=== PATIENT | male | born 1980 | race Caucasian/White ===

== ENCOUNTER 2019-03-10 04:55 | Emergency (ER) | payer SELFPAY ==
[~2019-03-10] VITALS: Ht 180.3 cm; Wt 81.6 kg
[2019-03-10 05:01] VITALS: BP 152/93
[2019-03-10] MEDS ORDERED: PRED20TA PO (05:10)
[2019-03-10] MEDS ORDERED: HYDR-3164 PO (05:10)
[2019-03-10] MEDS ORDERED: AMOX1TAB61 PO (05:10)
[2019-03-10] MEDS ORDERED: CHLO15MO2 PO (05:10)
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
[2019-03-10] MEDS ORDERED: DEXAMETHASONE 4 MG TABLET PO ONE (05:15)
[2019-03-10] MEDS ORDERED: AMOXICILLIN/K CLAV 875/125MG TABLET. PO ONE (05:15)
[2019-03-10] MEDS ORDERED: HYDROcodone/APAP 5/325MG 1 TAB TABLET PO ONE (05:30)
== END 2019-03-10 05:20 | disposition home or self-care (01) ==
LOC: ER 04:55
DX: K02.9 Dental caries, unspecified (principal); K08.89 Other specified disorders of teeth and supporting structures
CPT/HCPCS: 99284; J8540

== ENCOUNTER 2019-05-04 18:49 | Inpatient (IN) | payer BC ==
[~2019-05-04] VITALS: Ht 180.3 cm; Wt 79.0 kg
[~2019-05-04 18:49] MED LIST: AMOX1TAB61 PO; CHLO15MO2 PO; HYDR-3164 PO; PRED20TA PO
[2019-05-04] MEDS ORDERED: ONDANSETRON PF 4 MG/2 ML VIAL. IV ONE (19:00)
[2019-05-04] MEDS ORDERED: MULTIVIT INFUSN,ADULT 4,VIT K 10 ML, THIAMINE INJ 100 MG, FOLIC ACID INJ 1 MG in IV NOR... IV ONE (19:00)
--- NOTE | 2019-05-04 19:06 | PHYS DOC ---
Past Medical History Past Medical History: No Pertinent History Additional Past Medical Histor: DENTAL CARIES Past Surgical History: No Surgical History Alcohol Use: None Drug Use: None Adult General Chief Complaint Chief Complaint: WITHDRAWL HPI HPI 39-year-old male presents to emergency department with complaints of nausea, vomiting, abdominal cramping, weakness. Patient's underlying history of alcoholism, states he's been sober for at least 3 years however recently went on a binge for the approximately 30 days drinking 6 - 24 ounce beers per day. Patient states he stops today however had nausea, vomiting or abdominal pain, cramping states he drank approximately a height of vodka around noon thinking this helped his symptoms however continued to have vomiting and abdominal discomfort. EMS was called, heart rates in the 140s 150s. Patient is anxious, jittery on exam. He is cooperative. Nothing makes his symptoms worse, nothing makes them better. Patient has an chest pain, short of breath, headache, visual changes, hallucinations. Review of Systems Review of Systems Respiratory: Denies cough or shortness of breath [] Cardiovascular: No additional information not addressed in HPI [] GI: Positive abdominal pain, nausea, vomiting, and denies bloody stools or diarrhea [] Musculoskeletal: Joint aches, cramping Integument: Denies rash or skin lesions [] Neurologic: Denies headache, focal weakness or sensory changes [] All other systems were reviewed and found to be within normal limits, except as documented in this note. Current Medications Current Medications Current Medications Medications (Trade) Dose Ordered Sig/Mir Start Time Stop Time Status Last Admin Dose Admin Dicyclomine HCl (Bentyl) 10 mg 1X ONCE 05/04/19 19:15 05/04/19 19:16 DC 05/04/19 19:28 10 MG Lorazepam (Ativan Inj) 2 mg 1X ONCE 05/04/19 19:00 05/04/19 19:03 DC 05/04/19 19:12 2 MG Multivitamins 10 ml/Thiamine HCl 100 mg/Folic Acid 1 mg/Sodium Chloride 1,011.2 ml @ 1,000 mls/ hr 1X ONCE 05/04/19 19:00 05/04/19 20:00 DC 05/04/19 19:16 1,000 MLS/HR Ondansetron HCl (Zofran) 4 mg 1X ONCE 9/23/19 19:00 05/04/19 19:01 DC 05/04/19 19:28 4 MG Sodium Chloride 1,000 ml @ 1,000 mls/hr 1X ONCE 05/04/19 19:15 05/04/19 20:14 DC 05/04/19 19:16 1,000 MLS/HR Allergies Allergies Allergies Coded Allergies Type Severity Reaction Last Updated Verified No Known Drug Allergies 03/10/19 No Physical Exam Physical Exam Constitutional: Well developed, well nourished, mild distress, non-toxic appearance. [] HENT: Normocephalic, atraumatic, bilateral external ears normal, oropharynx moist, no oral exudates, nose normal. [] Eyes: PERRLA, EOMI, conjunctiva normal, no discharge. [] Cardiovascular: Tachycardia Lungs & Thorax: Bilateral breath sounds clear to auscultation [] Abdomen: Bowel sounds normal, soft, no tenderness, no masses, no pulsatile masses. [] Skin: Warm, dry, no erythema, no rash. [] Extremities: No tenderness, no cyanosis, no clubbing, ROM intact, no edema. [] Neurologic: Alert and oriented X 3, no focal deficits noted. [] Psychologic: Affect normal, judgement normal, mood normal. [] Current Patient Data Vital Signs Vital Signs Date Time Temp Pulse Resp B/P (MAP) Pulse Ox O2 Delivery O2 Flow Rate FiO2 05/04/19 18:49 98.7 137 18 158/94 (115) 91 Room Air 98.7 Lab Values Laboratory Tests Test 05/04/19 18:58 05/04/19 19:09 White Blood Count 9.5 x10^3/uL (4.0-11.0) Red Blood Count 5.38 x10^6/uL (4.30-5.70) Hemoglobin 19.3 g/dL (13.0-17.5) H Hematocrit 54.4 % (39.0-53.0) H Mean Corpuscular Volume 101 fL (79-100) H Mean Corpuscular Hemoglobin 36 pg (25-35) H Mean Corpuscular Hemoglobin Concent 36 g/dL (31-37) Red Cell Distribution Width 16.2 % (11.5-14.5) H Platelet Count 117 x10^3/uL (140-400) L Neutrophils (%) (Auto) 66 % (31-73) Lymphocytes (%) (Auto) 24 % (24-48) Monocytes (%) (Auto) 9 % (0-9) Eosinophils (%) (Auto) 0 % (0-3) Basophils (%) (Auto) 1 % (0-3) Neutrophils # (Auto) 6.2 x10^3/uL (1.8-7.7) Lymphocytes # (Auto) 2.3 x10^3/uL (1.0-4.8) Monocytes # (Auto) 0.8 x10^3/uL (0.0-1.1) Eosinophils # (Auto) 0.0 x10^3/uL (0.0-0.7) Basophils # (Auto) 0.1 x10^3/uL (0.0-0.2) Prothrombin Time 11.3 SEC (11.7-14.0) L Prothrombin Time INR 0.9 (0.8-1.1) Sodium Level 137 mmol/L (136-145) Potassium Level 4.0 mmol/L (3.5-5.1) Chloride Level 96 mmol/L (98-107) L Carbon Dioxide Level 24 mmol/L (21-32) Anion Gap 17 (6-14) H Blood Urea Nitrogen 12 mg/dL (8-26) Creatinine 0.8 mg/dL (0.7-1.3) Estimated GFR (Cockcroft-Gault) 107.6 Glucose Level 100 mg/dL (70-99) H Calcium Level 10.0 mg/dL (8.5-10.1) Magnesium Level 1.9 mg/dL (1.8-2.4) Total Bilirubin 0.6 mg/dL (0.2-1.0) Direct Bilirubin 0.2 mg/dL (0.0-0.2) Aspartate Amino Transferase (AST) 254 U/L (15-37) H Alanine Aminotransferase (ALT) 144 U/L (16-63) H Alkaline Phosphatase 193 U/L (46-116) H Total Protein 9.0 g/dL (6.4-8.2) H Albumin 4.2 g/dL (3.4-5.0) Lipase 222 U/L (73-393) Salicylates Level 9.3 mg/dL (2.8-20.0) Salicylate Last Dose Date Unknown Salicylate Last Dose Time Unknown Acetaminophen Level < 2 mcg/ml (10-30) L Acetaminophen Last Dose Date Unknown Acetaminophen Last Dose Time Unknown Ethyl Alcohol Level 311 mg/dL (0-10) H Urine Opiates Screen Neg (NEG) Urine Methadone Screen Neg (NEG) Urine Barbiturates Neg (NEG) Urine Phencyclidine Screen Neg (NEG) Urine Amphetamine/Methamphetamine Neg (NEG) Urine Benzodiazepines Screen Neg (NEG) Urine Cocaine Screen Neg (NEG) Urine Cannabinoids Screen Neg (NEG) Urine Ethyl Alcohol Pos (NEG) Laboratory Tests 05/04/19 18:58 Laboratory Tests 05/04/19 18:58 EKG EKG EKG reviewed, sinus tachycardia heart rate 135, no evidence of acute ST or T wave change. EKG is urgent given rate.[] Interpretation Time: Interpretation time 185 Radiology/Procedures Radiology/Procedures [] Course & Med Decision Making Course & Med Decision Making Pertinent Labs and Imaging studies reviewed. (See chart for details) []39-year-old male presents to emergency department with complaints of nausea, vomiting, abdominal cramping, weakness. Patient's underlying history of alcoholism, states he's been sober for at least 3 years however recently went on a binge for the approximately 30 days drinking 6 - 24 ounce beers per day. Patient states he stops today however had nausea, vomiting or abdominal pain, cramping states he drank approximately a height of vodka around noon thinking this helped his symptoms however continued to have vomiting and abdominal discomfort. EMS was called, heart rates in the 140s 150s. Patient is anxious, jittery on exam. He is cooperative. Nothing makes his symptoms worse, nothing makes them better. Patient has an chest pain, short of breath, headache, visual changes, hallucinations. Patient received 2 L of IV fluids currently infusing, labs reviewed AST is 254, ALT 144, lipase is 222 alcohols 311. Reason performed 40s 150s and currently 120s. Given his symptoms of alcohol withdrawal tachycardia and acute intoxication plan for admission and further evaluation for detox programs post his initial withdrawal recovery. We'll discuss admission with hospitalist. Nmio Disclaimer Nimo Disclaimer This electronic medical record was generated, in whole or in part, using a voice recognition dictation system. Departure Departure Impression: Primary Impression: Alcohol withdrawal Additional Impressions: Elevated liver function tests Thrombocytopenia concurrent with and due to alcoholism Disposition: ADMITTED INPATIENT Admitting Physician: JILL Condition: STABLE Referrals: NO PCP (PCP) Problem Qualifiers SINAN RÍOS MD May 04, 2019 19:06
[2019-05-04 19:09] LABS: BASO # 0.1 x10^3/uL (0.0-0.2); BASO % 1 % (0-3); EOS % 0 % (0-3); HEMATOCRIT 54.4 % (39.0-53.0); HEMOGLOBIN 19.3 g/dL (13.0-17.5); LYMPH # 2.3 x10^3/uL (1.0-4.8); LYMPH % 24 % (24-48); MEAN CORPUSCULAR HEMOGLOBIN 36 pg (25-35); MEAN CORPUSCULAR HGB CONC 36 g/dL (31-37); MEAN CORPUSCULAR VOLUME 101 fL (79-100); MONO # 0.8 x10^3/uL (0.0-1.1); MONO % 9 % (0-9); NEUT # 6.2 x10^3/uL (1.8-7.7); NEUT % 66 % (31-73); PLATELET COUNT 117 x10^3/uL (140-400); RED BLOOD COUNT 5.38 x10^6/uL (4.30-5.70); RED CELL DISTRIBUTION WIDTH 16.2 % (11.5-14.5); WHITE BLOOD COUNT 9.5 x10^3/uL (4.0-11.0)
[2019-05-04] MEDS ORDERED: IV NORMAL SALINE 1000ML BAG 1,000 ML IV ONE (19:15)
[2019-05-04] MEDS ORDERED: DICYCLOMINE 20 MG/2 ML AMPUL. IM ONE (19:15)
[2019-05-04 19:18] LABS: PROTHROMBIN TIME PATIENT 11.3 SEC (11.7-14.0)
[2019-05-04 19:22] LABS: CREATININE 0.8 mg/dL (0.7-1.3); GFR 107.6
[2019-05-04 19:26] LABS: AMPHETAMINE/METHAMPHETAMINE NEG (NEG); BARBITURATES NEG (NEG); BENZODIAZEPINES NEG (NEG); CANNABINOIDS NEG (NEG); COCAINE NEG (NEG); METHADONE NEG (NEG); OPIATES NEG (NEG); PHENCYCLIDINE NEG (NEG)
[2019-05-04 19:27] LABS: ALBUMIN 4.2 g/dL (3.4-5.0); DIRECT BILIRUBIN 0.2 mg/dL (0.0-0.2); MAGNESIUM 1.9 mg/dL (1.8-2.4); TOTAL BILIRUBIN 0.6 mg/dL (0.2-1.0)
[2019-05-04 19:31] LABS: ACETAMIN < 2 mcg/ml (10-30); ETHANOL 311 mg/dL (0-10); SALIC 9.3 mg/dL (2.8-20.0)
[2019-05-04] MEDS ORDERED: cloNIDine HCL 0.1 MG TABLET PO PRN (20:30)
[2019-05-04] MEDS ORDERED: ACETAMINOPHEN 325 MG TABLET. PO PRN (20:30)
[2019-05-04] MEDS ORDERED: ONDANSETRON PF 4 MG/2 ML VIAL. IV PRN (20:30)
--- NOTE | 2019-05-04 21:13 | PDOC1 ---
History and Physical Date of Admission Date of Admission DATE: 05/04/19 TIME: 21:07 Source Source: Chart review, Patient History of Present Illness History of Present Illness Mr. Friedman, is a 39-year-old male admit from ER for nausea, vomiting, abdominal cramping, weakness. Hx alcoholism, sober for at least 3 years, but took a leave from his job 30 days ago, started drinking, reports 12 beers daily and a half pint this AM when tremor and withdrawl started. He is likely wildly underestimating his EtOH use. She stinks of EtOH, and level is > 300 and his HR is 115, and he has tremor/agitation and classic signs of withdrawl, abd pain is better, ER gave 2mg IV ativan and he reports he "didn't even feel it" Social History Smoke: 2 packs per day ALCOHOL: heavy Current Problem List Problem List Problems Medical Problems: (1) Elevated liver function tests Status: Acute (2) Thrombocytopenia concurrent with and due to alcoholism Status: Acute Current Medications Current Medications Current Medications Ondansetron HCl (Zofran) 4 mg 1X ONCE IV Last administered on 05/04/19at 19:28; Start 05/04/19 at 19:00; Stop 05/04/19 at 19:01; Status DC Multivitamins 10 ml/Thiamine HCl 100 mg/Folic Acid 1 mg/Sodium Chloride 1,011.2 ml @ 1,000 mls/ hr 1X ONCE IV Last administered on 05/04/19at 19:16; Start 05/04/19 at 19:00; Stop 05/04/19 at 20:00; Status DC Lorazepam (Ativan Inj) 2 mg 1X ONCE IV Last administered on 05/04/19at 19:12; Start 05/04/19 at 19:00; Stop 05/04/19 at 19:03; Status DC Sodium Chloride 1,000 ml @ 1,000 mls/hr 1X ONCE IV Last administered on 05/04/19at 19:16; Start 05/04/19 at 19:15; Stop 05/04/19 at 20:14; Status DC Dicyclomine HCl (Bentyl) 10 mg 1X ONCE IM Last administered on 05/04/19at 19:28; Start 05/04/19 at 19:15; Stop 05/04/19 at 19:16; Status DC Ondansetron HCl (Zofran) 4 mg PRN Q8HRS PRN IV NAUSEA/VOMITING; Start 05/04/19 at 20:30; Stop 05/05/19 at 20:29 Acetaminophen (Tylenol) 650 mg PRN Q4HRS PRN PO FEVER; Start 05/04/19 at 20:30; Stop 05/05/19 at 20:29 Multivitamins 10 ml/Thiamine HCl 100 mg/Folic Acid 1 mg/Sodium Chloride 1,011.2 ml @ 100 mls/ hr DAILY IV ; Start 05/05/19 at 09:00; Stop 05/09/19 at 19:07 Lorazepam (Ativan Inj) 2 mg PRN Q1HR PRN IV For CIWA 8-14; Start 05/04/19 at 20:30 Lorazepam (Ativan Inj) 4 mg PRN Q1HR PRN IV For CIWA 15 or greater; Start 05/04/19 at 20:30 Haloperidol Lactate (Haldol Inj) 5 mg PRN Q4HRS PRN IVP Hallucinatns,Confusn,Delirium; Start 05/04/19 at 20:30 Clonidine HCl (Catapres) 0.1 mg PRN Q1HR PRN PO SBP > 180 or DBP > 100, MRX3; Start 05/04/19 at 20:30 Active Scripts Active Augmentin 875-125 Tablet (Amoxicillin/Potassium Clav) 1 Each Tablet 1 Tab PO BID [place] 5-325 Tablet (Acetaminophen/Hydrocodone Bitart) 1 Each Tablet 0.5-1 Tab PO PRN Q6HRS PRN Prednisone 20 Mg Tablet 2 Tab PO DAILY Start this medication tomorrow, Saturday03/11/19 Peridex (Chlorhexidine Gluconate) 15 Ml Mouthwash 15 Ml PO BID Allergies Allergies: Coded Allergies: No Known Drug Allergies (Unverified , 03/10/19) ROS General: YES: Chills, Fatigue, Malaise, Other; No: Night Sweats, Appetite PSYCHOLOGICAL ROS: YES: Anxiety, Hallucinations, Hostility, Irritablity, Obsessive thoughts, Sleep disturbances; No: Behavioral Disorder, Concentration difficultie, Decreased libido, Depression, Disorientation, Memory difficulties, Mood Swings, Physical abuse, Sexual abuse, Suicidal ideation, Other Eyes: No Blurry vision, No Decreased vision, No Double vision, No Dry eyes, No Excessive tearing, No Eye Pain, No Itchy Eyes, No Loss of vision, No Photophobia, No Scotomata, No Uses contacts, No Uses glasses, No Other HEENT: No: Heacaches, Visual Changes, Hearing change, Nasal congestion, Nasal discharge, Oral lesions, Sinus pain, Sore Throat, Epistaxis, Sneezing, Snoring, Tinnitus, Vertigo, Vocal changes, Other Respiratory: No: Cough, Hemoptysis, Orthopnea, Pleuritic Pain, Shortness of breath, SOB with excertion, Sputum Changes, Stridor, Tachypnea, Wheezing, Other Cardiovascular: No Chest Pain, No Palpitations, No Orthopnea, No Paroxysmal Noc. Dyspnea, No Edema, No Lt Headedness, No Other Gastrointestinal: Yes Nausea, Yes Abdominal Pain Genitourinary: No Dysuria, No Frequency, No Incontinence, No Hematuria, No Retention, No Discharge, No Urgency, No Pain, No Flank Pain, No Other, No , No , No , No , No , No , No Neurological: Yes Confusion, Yes Headaches, Yes Tremors, Yes Visual Changes, Ye s Weakness; No Behavorial Changes, No Bowel/Bladder ControlChng, No Dizziness, No Gait Disturbance, No Impaired Coord/balance, No Memory Loss, No Numbness/Tingling, No Seizures, No Speech Problems, No Other Skin: Yes Dry Skin; No Eczema, No Hair Changes, No Lumps, No Mole Changes, No Mottling, No Nail Changes, No Pruritus, No Rash, No Skin Lesion Changes, No Other, No Acne Physical Exam General: Alert, Oriented X3, Cooperative, moderate distress HEENT: PERRLA, EOMI, Mucous membr. moist/pink Lungs: Clear to auscultation Heart: S1S2, no gallops Abdomen: Normal bowel sounds (tender, ), Soft Extremities: No cyanosis, No edema, Normal pulses Skin: No rashes Neuro: Normal speech, Normal tone, Sensation intact, Cranial nerves 3-12 NL Psych/Mental Status: Mental status NL Vitals Vitals Vital Signs Date Time Temp Pulse Resp B/P (MAP) Pulse Ox O2 Delivery O2 Flow Rate FiO2 05/04/19 20:14 117 18 125/73 (90) 96 Room Air 05/04/19 18:49 98.7 98.7 Labs Labs Laboratory Tests Test 05/04/19 18:58 05/04/19 19:09 White Blood Count 9.5 x10^3/uL (4.0-11.0) Red Blood Count 5.38 x10^6/uL (4.30-5.70) Hemoglobin 19.3 g/dL (13.0-17.5) Hematocrit 54.4 % (39.0-53.0) Mean Corpuscular Volume 101 fL (79-100) Mean Corpuscular Hemoglobin 36 pg (25-35) Mean Corpuscular Hemoglobin Concent 36 g/dL (31-37) Red Cell Distribution Width 16.2 % (11.5-14.5) Platelet Count 117 x10^3/uL (140-400) Neutrophils (%) (Auto) 66 % (31-73) Lymphocytes (%) (Auto) 24 % (24-48) Monocytes (%) (Auto) 9 % (0-9) Eosinophils (%) (Auto) 0 % (0-3) Basophils (%) (Auto) 1 % (0-3) Neutrophils # (Auto) 6.2 x10^3/uL (1.8-7.7) Lymphocytes # (Auto) 2.3 x10^3/uL (1.0-4.8) Monocytes # (Auto) 0.8 x10^3/uL (0.0-1.1) Eosinophils # (Auto) 0.0 x10^3/uL (0.0-0.7) Basophils # (Auto) 0.1 x10^3/uL (0.0-0.2) Prothrombin Time 11.3 SEC (11.7-14.0) Prothromb Time International Ratio 0.9 (0.8-1.1) Sodium Level 137 mmol/L (136-145) Potassium Level 4.0 mmol/L (3.5-5.1) Chloride Level 96 mmol/L (98-107) Carbon Dioxide Level 24 mmol/L (21-32) Anion Gap 17 (6-14) Blood Urea Nitrogen 12 mg/dL (8-26) Creatinine 0.8 mg/dL (0.7-1.3) Estimated GFR (Cockcroft-Gault) 107.6 Glucose Level 100 mg/dL (70-99) Calcium Level 10.0 mg/dL (8.5-10.1) Magnesium Level 1.9 mg/dL (1.8-2.4) Total Bilirubin 0.6 mg/dL (0.2-1.0) Direct Bilirubin 0.2 mg/dL (0.0-0.2) Aspartate Amino Transf (AST/SGOT) 254 U/L (15-37) Alanine Aminotransferase (ALT/SGPT) 144 U/L (16-63) Alkaline Phosphatase 193 U/L (46-116) Total Protein 9.0 g/dL (6.4-8.2) Albumin 4.2 g/dL (3.4-5.0) Lipase 222 U/L (73-393) Salicylates Level 9.3 mg/dL (2.8-20.0) Salicylate Last Dose Date Unknown Salicylate Last Dose Time Unknown Acetaminophen Level < 2 mcg/ml (10-30) Acetaminophen Last Dose Date Unknown Acetaminophen Last Dose Time Unknown Ethyl Alcohol Level 311 mg/dL (0-10) Urine Opiates Screen Neg (NEG) Urine Methadone Screen Neg (NEG) Urine Barbiturates Neg (NEG) Urine Phencyclidine Screen Neg (NEG) Urine Amphetamine/Methamphetamine Neg (NEG) Urine Benzodiazepines Screen Neg (NEG) Urine Cocaine Screen Neg (NEG) Urine Cannabinoids Screen Neg (NEG) Urine Ethyl Alcohol Pos (NEG) Laboratory Tests Test 05/04/19 18:58 05/04/19 19:09 White Blood Count 9.5 x10^3/uL (4.0-11.0) Red Blood Count 5.38 x10^6/uL (4.30-5.70) Hemoglobin 19.3 g/dL (13.0-17.5) Hematocrit 54.4 % (39.0-53.0) Mean Corpuscular Volume 101 fL (79-100) Mean Corpuscular Hemoglobin 36 pg (25-35) Mean Corpuscular Hemoglobin Concent 36 g/dL (31-37) Red Cell Distribution Width 16.2 % (11.5-14.5) Platelet Count 117 x10^3/uL (140-400) Neutrophils (%) (Auto) 66 % (31-73) Lymphocytes (%) (Auto) 24 % (24-48) Monocytes (%) (Auto) 9 % (0-9) Eosinophils (%) (Auto) 0 % (0-3) Basophils (%) (Auto) 1 % (0-3) Neutrophils # (Auto) 6.2 x10^3/uL (1.8-7.7) Lymphocytes # (Auto) 2.3 x10^3/uL (1.0-4.8) Monocytes # (Auto) 0.8 x10^3/uL (0.0-1.1) Eosinophils # (Auto) 0.0 x10^3/uL (0.0-0.7) Basophils # (Auto) 0.1 x10^3/uL (0.0-0.2) Prothrombin Time 11.3 SEC (11.7-14.0) Prothromb Time International Ratio 0.9 (0.8-1.1) Sodium Level 137 mmol/L (136-145) Potassium Level 4.0 mmol/L (3.5-5.1) Chloride Level 96 mmol/L (98-107) Carbon Dioxide Level 24 mmol/L (21-32) Anion Gap 17 (6-14) Blood Urea Nitrogen 12 mg/dL (8-26) Creatinine 0.8 mg/dL (0.7-1.3) Estimated GFR (Cockcroft-Gault) 107.6 Glucose Level 100 mg/dL (70-99) Calcium Level 10.0 mg/dL (8.5-10.1) Magnesium Level 1.9 mg/dL (1.8-2.4) Total Bilirubin 0.6 mg/dL (0.2-1.0) Direct Bilirubin 0.2 mg/dL (0.0-0.2) Aspartate Amino Transf (AST/SGOT) 254 U/L (15-37) Alanine Aminotransferase (ALT/SGPT) 144 U/L (16-63) Alkaline Phosphatase 193 U/L (46-116) Total Protein 9.0 g/dL (6.4-8.2) Albumin 4.2 g/dL (3.4-5.0) Lipase 222 U/L (73-393) Salicylates Level 9.3 mg/dL (2.8-20.0) Salicylate Last Dose Date Unknown Salicylate Last Dose Time Unknown Acetaminophen Level < 2 mcg/ml (10-30) Acetaminophen Last Dose Date Unknown Acetaminophen Last Dose Time Unknown Ethyl Alcohol Level 311 mg/dL (0-10) Urine Opiates Screen Neg (NEG) Urine Methadone Screen Neg (NEG) Urine Barbiturates Neg (NEG) Urine Phencyclidine Screen Neg (NEG) Urine Amphetamine/Methamphetamine Neg (NEG) Urine Benzodiazepines Screen Neg (NEG) Urine Cocaine Screen Neg (NEG) Urine Cannabinoids Screen Neg (NEG) Urine Ethyl Alcohol Pos (NEG) VTE Prophylaxis Ordered VTE Prophylaxis Devices: No VTE Pharmacological Prophylaxi: Yes Assessment/Plan Assessment/Plan acute alcohol withdrawl toxic encephalopathy, EtOH level > 300 admit with withdrawl precautions and treatment transaminitis acute metabolic acidosis with gap from ETOH asthma and COPD, nebs tobacco use disorder, patch ARACELIS TELLEZ MD May 04, 2019 21:13
[2019-05-04] MEDS: ENOXAPARIN 40 MG/0.4 ML SYRINGE. SQ SCH (21:30)
[2019-05-04 21:43] VITALS: BP 130/89
[2019-05-04] MEDS: IPRATRPIUM/ALBUTEROL 0.5/2.5MG 3 ML NEBU. NEB SCH (22:00)
[2019-05-04] MEDS ORDERED: INFLUENZA VAX SCREEN BY RX. MC PRN (22:30)
[2019-05-05 03:27] VITALS: BP 135/84
[2019-05-05 04:51] LABS: BASO # 0.1 x10^3/uL (0.0-0.2); BASO % 1 % (0-3); EOS # 0.2 x10^3/uL (0.0-0.7); EOS % 3 % (0-3); HEMATOCRIT 48.4 % (39.0-53.0); HEMOGLOBIN 16.8 g/dL (13.0-17.5); LYMPH # 2.1 x10^3/uL (1.0-4.8); LYMPH % 34 % (24-48); MEAN CORPUSCULAR HEMOGLOBIN 36 pg (25-35); MEAN CORPUSCULAR HGB CONC 35 g/dL (31-37); MEAN CORPUSCULAR VOLUME 102 fL (79-100); MONO # 0.5 x10^3/uL (0.0-1.1); MONO % 8 % (0-9); NEUT # 3.3 x10^3/uL (1.8-7.7); NEUT % 53 % (31-73); PLATELET COUNT 104 x10^3/uL (140-400); RED BLOOD COUNT 4.74 x10^6/uL (4.30-5.70); RED CELL DISTRIBUTION WIDTH 16.9 % (11.5-14.5); WHITE BLOOD COUNT 6.1 x10^3/uL (4.0-11.0)
[2019-05-05 05:27] LABS: ALBUMIN 3.6 g/dL (3.4-5.0); ALBUMIN/GLOBULIN RATIO 0.9 (1.0-1.7); CALCIUM 9.5 mg/dL (8.5-10.1); CREATININE 0.7 mg/dL (0.7-1.3); GFR 125.5; POTASSIUM 3.8 mmol/L (3.5-5.1); TOTAL BILIRUBIN 0.8 mg/dL (0.2-1.0); TOTAL PROTEIN 7.6 g/dL (6.4-8.2)
[2019-05-05 07:30] VITALS: BP 152/95
--- NOTE | 2019-05-05 07:32 | EKG ---
[facility] [address] [place] [address] Test Date: 2019-05-04 Test Time: 18:53:56 Pat Name: LIN BEAL Department: Room: 654 1 Gender: M Chief Digital Officer: : 1980 Requested By: SINAN RÍOS Order Number: [id number] Reading MD: Americo Thrasher MD Measurements Intervals [place] Rate: 134 P: -125 DE: 108 QRS: -31 QRSD: 80 T: 63 QT: 270 QTc: 409 Interpretive Statements SINUS TACHYCARDIA NON-SPECIFIC ST/T CHANGES Electronically Signed On 05-18-2019 12:41:52 CDT by Americo Thrasher MD
[2019-05-05] MEDS: IPRATRPIUM/ALBUTEROL 0.5/2.5MG 3 ML NEBU. NEB SCH ×4 (07:35→19:38)
[2019-05-05] MEDS: BUDESONIDE 0.5 MG/2 ML NEBU. NEB SCH ×2 (07:37→19:38)
[2019-05-05] MEDS ORDERED: FLU VAX QS 2019-20 (36MOS+)/PF 0.5 ML SYRINGE. VAX IM ONE (09:00)
[2019-05-05] MEDS: MULTIVIT INFUSN,ADULT 4,VIT K 10 ML, THIAMINE INJ 100 MG, FOLIC ACID INJ 1 MG in IV NOR... IV SCH (09:07)
[2019-05-05] MEDS: LORazepam 0.5 MG TABLET PO SCH ×2 (09:07→20:16)
[2019-05-05 11:05] VITALS: BP 166/88
--- NOTE | 2019-05-05 11:27 | PDOC ---
PROGRESS NOTES Chief Complaint Chief Complaint still feels withdrawal. score of 5 this AM. overnight H and P reviewed. denies chest pain sob nausea vomiting diarrhea. History of Present Illness History of Present Illness acute alcohol withdrawl: continue ativan prn. toxic encephalopathy improving, EtOH level > 300 elevated LFTs: check hep panel. likely due to etoh. check US of liver acute metabolic acidosis with gap from ETOH asthma and COPD, nebs tobacco use disorder, patch dvt ppx: heparin sq full code dc once withdrawal improves. Vitals Vitals Vital Signs Date Time Temp Pulse Resp B/P (MAP) Pulse Ox O2 Delivery O2 Flow Rate FiO2 05/05/19 11:05 98.9 102 20 166/88 (114) 96 Room Air 98.9 Physical Exam General: Alert, Oriented X3, Cooperative, moderate distress Abdomen: Normal bowel sounds (tender, ), Soft Extremities: No cyanosis, No edema, Normal pulses Skin: No rashes Labs LABS Laboratory Tests Test 05/04/19 18:58 05/04/19 19:09 05/05/19 03:35 White Blood Count 9.5 x10^3/uL (4.0-11.0) 6.1 x10^3/uL (4.0-11.0) Red Blood Count 5.38 x10^6/uL (4.30-5.70) 4.74 x10^6/uL (4.30-5.70) Hemoglobin 19.3 g/dL (13.0-17.5) 16.8 g/dL (13.0-17.5) Hematocrit 54.4 % (39.0-53.0) 48.4 % (39.0-53.0) Mean Corpuscular Volume 101 fL (79-100) 102 fL (79-100) Mean Corpuscular Hemoglobin 36 pg (25-35) 36 pg (25-35) Mean Corpuscular Hemoglobin Concent 36 g/dL (31-37) 35 g/dL (31-37) Red Cell Distribution Width 16.2 % (11.5-14.5) 16.9 % (11.5-14.5) Platelet Count 117 x10^3/uL (140-400) 104 x10^3/uL (140-400) Neutrophils (%) (Auto) 66 % (31-73) 53 % (31-73) Lymphocytes (%) (Auto) 24 % (24-48) 34 % (24-48) Monocytes (%) (Auto) 9 % (0-9) 8 % (0-9) Eosinophils (%) (Auto) 0 % (0-3) 3 % (0-3) Basophils (%) (Auto) 1 % (0-3) 1 % (0-3) Neutrophils # (Auto) 6.2 x10^3/uL (1.8-7.7) 3.3 x10^3/uL (1.8-7.7) Lymphocytes # (Auto) 2.3 x10^3/uL (1.0-4.8) 2.1 x10^3/uL (1.0-4.8) Monocytes # (Auto) 0.8 x10^3/uL (0.0-1.1) 0.5 x10^3/uL (0.0-1.1) Eosinophils # (Auto) 0.0 x10^3/uL (0.0-0.7) 0.2 x10^3/uL (0.0-0.7) Basophils # (Auto) 0.1 x10^3/uL (0.0-0.2) 0.1 x10^3/uL (0.0-0.2) Prothrombin Time 11.3 SEC (11.7-14.0) Prothromb Time International Ratio 0.9 (0.8-1.1) Sodium Level 137 mmol/L (136-145) 139 mmol/L (136-145) Potassium Level 4.0 mmol/L (3.5-5.1) 3.8 mmol/L (3.5-5.1) Chloride Level 96 mmol/L (98-107) 100 mmol/L (98-107) Carbon Dioxide Level 24 mmol/L (21-32) 27 mmol/L (21-32) Anion Gap 17 (6-14) 12 (6-14) Blood Urea Nitrogen 12 mg/dL (8-26) 11 mg/dL (8-26) Creatinine 0.8 mg/dL (0.7-1.3) 0.7 mg/dL (0.7-1.3) Estimated GFR (Cockcroft-Gault) 107.6 125.5 Glucose Level 100 mg/dL (70-99) 72 mg/dL (70-99) Calcium Level 10.0 mg/dL (8.5-10.1) 9.5 mg/dL (8.5-10.1) Magnesium Level 1.9 mg/dL (1.8-2.4) Total Bilirubin 0.6 mg/dL (0.2-1.0) 0.8 mg/dL (0.2-1.0) Direct Bilirubin 0.2 mg/dL (0.0-0.2) Aspartate Amino Transf (AST/SGOT) 254 U/L (15-37) 186 U/L (15-37) Alanine Aminotransferase (ALT/SGPT) 144 U/L (16-63) 112 U/L (16-63) Alkaline Phosphatase 193 U/L (46-116) 158 U/L (46-116) Total Protein 9.0 g/dL (6.4-8.2) 7.6 g/dL (6.4-8.2) Albumin 4.2 g/dL (3.4-5.0) 3.6 g/dL (3.4-5.0) Lipase 222 U/L (73-393) Salicylates Level 9.3 mg/dL (2.8-20.0) Salicylate Last Dose Date Unknown Salicylate Last Dose Time Unknown Acetaminophen Level < 2 mcg/ml (10-30) Acetaminophen Last Dose Date Unknown Acetaminophen Last Dose Time Unknown Ethyl Alcohol Level 311 mg/dL (0-10) Urine Opiates Screen Neg (NEG) Urine Methadone Screen Neg (NEG) Urine Barbiturates Neg (NEG) Urine Phencyclidine Screen Neg (NEG) Urine Amphetamine/Methamphetamine Neg (NEG) Urine Benzodiazepines Screen Neg (NEG) Urine Cocaine Screen Neg (NEG) Urine Cannabinoids Screen Neg (NEG) Urine Ethyl Alcohol Pos (NEG) BUN/Creatinine Ratio 16 (6-20) Albumin/Globulin Ratio 0.9 (1.0-1.7) Assessment and Plan Assessmemt and Plan Problems Medical Problems: (1) Elevated liver function tests Status: Acute (2) Thrombocytopenia concurrent with and due to alcoholism Status: Acute Comment Review of Relevant I have reviewed the following items roseline (where applicable) has been applied. Labs Laboratory Tests Test 05/04/19 18:58 05/04/19 19:09 05/05/19 03:35 White Blood Count 9.5 x10^3/uL (4.0-11.0) 6.1 x10^3/uL (4.0-11.0) Red Blood Count 5.38 x10^6/uL (4.30-5.70) 4.74 x10^6/uL (4.30-5.70) Hemoglobin 19.3 g/dL (13.0-17.5) 16.8 g/dL (13.0-17.5) Hematocrit 54.4 % (39.0-53.0) 48.4 % (39.0-53.0) Mean Corpuscular Volume 101 fL (79-100) 102 fL (79-100) Mean Corpuscular Hemoglobin 36 pg (25-35) 36 pg (25-35) Mean Corpuscular Hemoglobin Concent 36 g/dL (31-37) 35 g/dL (31-37) Red Cell Distribution Width 16.2 % (11.5-14.5) 16.9 % (11.5-14.5) Platelet Count 117 x10^3/uL (140-400) 104 x10^3/uL (140-400) Neutrophils (%) (Auto) 66 % (31-73) 53 % (31-73) Lymphocytes (%) (Auto) 24 % (24-48) 34 % (24-48) Monocytes (%) (Auto) 9 % (0-9) 8 % (0-9) Eosinophils (%) (Auto) 0 % (0-3) 3 % (0-3) Basophils (%) (Auto) 1 % (0-3) 1 % (0-3) Neutrophils # (Auto) 6.2 x10^3/uL (1.8-7.7) 3.3 x10^3/uL (1.8-7.7) Lymphocytes # (Auto) 2.3 x10^3/uL (1.0-4.8) 2.1 x10^3/uL (1.0-4.8) Monocytes # (Auto) 0.8 x10^3/uL (0.0-1.1) 0.5 x10^3/uL (0.0-1.1) Eosinophils # (Auto) 0.0 x10^3/uL (0.0-0.7) 0.2 x10^3/uL (0.0-0.7) Basophils # (Auto) 0.1 x10^3/uL (0.0-0.2) 0.1 x10^3/uL (0.0-0.2) Prothrombin Time 11.3 SEC (11.7-14.0) Prothromb Time International Ratio 0.9 (0.8-1.1) Sodium Level 137 mmol/L (136-145) 139 mmol/L (136-145) Potassium Level 4.0 mmol/L (3.5-5.1) 3.8 mmol/L (3.5-5.1) Chloride Level 96 mmol/L (98-107) 100 mmol/L (98-107) Carbon Dioxide Level 24 mmol/L (21-32) 27 mmol/L (21-32) Anion Gap 17 (6-14) 12 (6-14) Blood Urea Nitrogen 12 mg/dL (8-26) 11 mg/dL (8-26) Creatinine 0.8 mg/dL (0.7-1.3) 0.7 mg/dL (0.7-1.3) Estimated GFR (Cockcroft-Gault) 107.6 125.5 Glucose Level 100 mg/dL (70-99) 72 mg/dL (70-99) Calcium Level 10.0 mg/dL (8.5-10.1) 9.5 mg/dL (8.5-10.1) Magnesium Level 1.9 mg/dL (1.8-2.4) Total Bilirubin 0.6 mg/dL (0.2-1.0) 0.8 mg/dL (0.2-1.0) Direct Bilirubin 0.2 mg/dL (0.0-0.2) Aspartate Amino Transf (AST/SGOT) 254 U/L (15-37) 186 U/L (15-37) Alanine Aminotransferase (ALT/SGPT) 144 U/L (16-63) 112 U/L (16-63) Alkaline Phosphatase 193 U/L (46-116) 158 U/L (46-116) Total Protein 9.0 g/dL (6.4-8.2) 7.6 g/dL (6.4-8.2) Albumin 4.2 g/dL (3.4-5.0) 3.6 g/dL (3.4-5.0) Lipase 222 U/L (73-393) Salicylates Level 9.3 mg/dL (2.8-20.0) Salicylate Last Dose Date Unknown Salicylate Last Dose Time Unknown Acetaminophen Level < 2 mcg/ml (10-30) Acetaminophen Last Dose Date Unknown Acetaminophen Last Dose Time Unknown Ethyl Alcohol Level 311 mg/dL (0-10) Urine Opiates Screen Neg (NEG) Urine Methadone Screen Neg (NEG) Urine Barbiturates Neg (NEG) Urine Phencyclidine Screen Neg (NEG) Urine Amphetamine/Methamphetamine Neg (NEG) Urine Benzodiazepines Screen Neg (NEG) Urine Cocaine Screen Neg (NEG) Urine Cannabinoids Screen Neg (NEG) Urine Ethyl Alcohol Pos (NEG) BUN/Creatinine Ratio 16 (6-20) Albumin/Globulin Ratio 0.9 (1.0-1.7) Laboratory Tests Test 05/04/19 18:58 05/04/19 19:09 05/05/19 03:35 White Blood Count 9.5 x10^3/uL (4.0-11.0) 6.1 x10^3/uL (4.0-11.0) Red Blood Count 5.38 x10^6/uL (4.30-5.70) 4.74 x10^6/uL (4.30-5.70) Hemoglobin 19.3 g/dL (13.0-17.5) 16.8 g/dL (13.0-17.5) Hematocrit 54.4 % (39.0-53.0) 48.4 % (39.0-53.0) Mean Corpuscular Volume 101 fL (79-100) 102 fL (79-100) Mean Corpuscular Hemoglobin 36 pg (25-35) 36 pg (25-35) Mean Corpuscular Hemoglobin Concent 36 g/dL (31-37) 35 g/dL (31-37) Red Cell Distribution Width 16.2 % (11.5-14.5) 16.9 % (11.5-14.5) Platelet Count 117 x10^3/uL (140-400) 104 x10^3/uL (140-400) Neutrophils (%) (Auto) 66 % (31-73) 53 % (31-73) Lymphocytes (%) (Auto) 24 % (24-48) 34 % (24-48) Monocytes (%) (Auto) 9 % (0-9) 8 % (0-9) Eosinophils (%) (Auto) 0 % (0-3) 3 % (0-3) Basophils (%) (Auto) 1 % (0-3) 1 % (0-3) Neutrophils # (Auto) 6.2 x10^3/uL (1.8-7.7) 3.3 x10^3/uL (1.8-7.7) Lymphocytes # (Auto) 2.3 x10^3/uL (1.0-4.8) 2.1 x10^3/uL (1.0-4.8) Monocytes # (Auto) 0.8 x10^3/uL (0.0-1.1) 0.5 x10^3/uL (0.0-1.1) Eosinophils # (Auto) 0.0 x10^3/uL (0.0-0.7) 0.2 x10^3/uL (0.0-0.7) Basophils # (Auto) 0.1 x10^3/uL (0.0-0.2) 0.1 x10^3/uL (0.0-0.2) Prothrombin Time 11.3 SEC (11.7-14.0) Prothromb Time International Ratio 0.9 (0.8-1.1) Sodium Level 137 mmol/L (136-145) 139 mmol/L (136-145) Potassium Level 4.0 mmol/L (3.5-5.1) 3.8 mmol/L (3.5-5.1) Chloride Level 96 mmol/L (98-107) 100 mmol/L (98-107) Carbon Dioxide Level 24 mmol/L (21-32) 27 mmol/L (21-32) Anion Gap 17 (6-14) 12 (6-14) Blood Urea Nitrogen 12 mg/dL (8-26) 11 mg/dL (8-26) Creatinine 0.8 mg/dL (0.7-1.3) 0.7 mg/dL (0.7-1.3) Estimated GFR (Cockcroft-Gault) 107.6 125.5 Glucose Level 100 mg/dL (70-99) 72 mg/dL (70-99) Calcium Level 10.0 mg/dL (8.5-10.1) 9.5 mg/dL (8.5-10.1) Magnesium Level 1.9 mg/dL (1.8-2.4) Total Bilirubin 0.6 mg/dL (0.2-1.0) 0.8 mg/dL (0.2-1.0) Direct Bilirubin 0.2 mg/dL (0.0-0.2) Aspartate Amino Transf (AST/SGOT) 254 U/L (15-37) 186 U/L (15-37) Alanine Aminotransferase (ALT/SGPT) 144 U/L (16-63) 112 U/L (16-63) Alkaline Phosphatase 193 U/L (46-116) 158 U/L (46-116) Total Protein 9.0 g/dL (6.4-8.2) 7.6 g/dL (6.4-8.2) Albumin 4.2 g/dL (3.4-5.0) 3.6 g/dL (3.4-5.0) Lipase 222 U/L (73-393) Salicylates Level 9.3 mg/dL (2.8-20.0) Salicylate Last Dose Date Unknown Salicylate Last Dose Time Unknown Acetaminophen Level < 2 mcg/ml (10-30) Acetaminophen Last Dose Date Unknown Acetaminophen Last Dose Time Unknown Ethyl Alcohol Level 311 mg/dL (0-10) Urine Opiates Screen Neg (NEG) Urine Methadone Screen Neg (NEG) Urine Barbiturates Neg (NEG) Urine Phencyclidine Screen Neg (NEG) Urine Amphetamine/Methamphetamine Neg (NEG) Urine Benzodiazepines Screen Neg (NEG) Urine Cocaine Screen Neg (NEG) Urine Cannabinoids Screen Neg (NEG) Urine Ethyl Alcohol Pos (NEG) BUN/Creatinine Ratio 16 (6-20) Albumin/Globulin Ratio 0.9 (1.0-1.7) Medications Current Medications Ondansetron HCl (Zofran) 4 mg 1X ONCE IV Last administered on 05/04/19at 19:28; Start 05/04/19 at 19:00; Stop 05/04/19 at 19:01; Status DC Multivitamins 10 ml/Thiamine HCl 100 mg/Folic Acid 1 mg/Sodium Chloride 1,011.2 ml @ 1,000 mls/ hr 1X ONCE IV Last administered on 05/04/19at 19:16; Start 05/04/19 at 19:00; Stop 05/04/19 at 20:00; Status DC Lorazepam (Ativan Inj) 2 mg 1X ONCE IV Last administered on 05/04/19at 19:12; Start 05/04/19 at 19:00; Stop 05/04/19 at 19:03; Status DC Sodium Chloride 1,000 ml @ 1,000 mls/hr 1X ONCE IV Last administered on 05/04/19at 19:16; Start 05/04/19 at 19:15; Stop 05/04/19 at 20:14; Status DC Dicyclomine HCl (Bentyl) 10 mg 1X ONCE IM Last administered on 05/04/19at 19:28; Start 05/04/19 at 19:15; Stop 05/04/19 at 19:16; Status DC Ondansetron HCl (Zofran) 4 mg PRN Q8HRS PRN IV NAUSEA/VOMITING; Start 05/04/19 at 20:30; Stop 05/05/19 at 20:29 Acetaminophen (Tylenol) 650 mg PRN Q4HRS PRN PO FEVER; Start 05/04/19 at 20:30; Stop 05/05/19 at 20:29 Multivitamins 10 ml/Thiamine HCl 100 mg/Folic Acid 1 mg/Sodium Chloride 1,011.2 ml @ 100 mls/ hr DAILY IV Last administered on 05/05/19at 09:10; Start 05/05/19 at 09:00; Stop 05/09/19 at 19:07 Lorazepam (Ativan Inj) 2 mg PRN Q1HR PRN IV For CIWA 8-14; Start 05/04/19 at 20:30 Lorazepam (Ativan Inj) 4 mg PRN Q1HR PRN IV For CIWA 15 or greater; Start 05/04/19 at 20:30 Haloperidol Lactate (Haldol Inj) 5 mg PRN Q4HRS PRN IVP Hallucinatns,Confusn,Delirium; Start 05/04/19 at 20:30 Clonidine HCl (Catapres) 0.1 mg PRN Q1HR PRN PO SBP > 180 or DBP > 100, MRX3; Start 05/04/19 at 20:30 Lorazepam (Ativan Inj) 2 mg 1X ONCE IV Last administered on 05/04/19at 21:12; Start 05/04/19 at 21:15; Stop 05/04/19 at 21:18; Status DC Albuterol/ Ipratropium (Duoneb) 3 ml Q4HRS W/A NEB Last administered on 05/05/19at 07:36; Start 05/04/19 at 22:00 Budesonide (Pulmicort) 0.5 mg BID NEB Last administered on 05/05/19at 07:37; Start 05/05/19 at 09:00 Lorazepam (Ativan) 1 mg BID PO Last administered on 05/05/19at 09:10; Start 05/05/19 at 09:00 Nicotine (Nicoderm Cq 21mg) 1 patch PRN DAILY PRN TD SMOKING CESSATION; Start 05/04/19 at 21:15 Enoxaparin Sodium (Lovenox Per Pharmacy Prophylaxis Dosing) 1 each PRN DAILY PRN MC SEE COMMENTS; Start 05/04/19 at 21:15 Enoxaparin Sodium (Lovenox 40mg Syringe) 40 mg Q24H SQ ; Start 05/04/19 at 21:30 Influenza Virus Vaccine Quadrival (Afluria Quad 2019-20 (3yr Up) Syringe) 0.5 ml ONCE ONCE VAX IM Last administered on 05/05/19at 09:10; Start 05/05/19 at 09:00; Stop 05/05/19 at 09:01; Status DC Info (FLU VACCINE SCREEN per RX) 1 each PRN 1X PRN MC SEE COMMENTS; Start 05/04/19 at 22:30; Status Cancel Active Scripts Active Augmentin 875-125 Tablet (Amoxicillin/Potassium Clav) 1 Each Tablet 1 Tab PO BID [place] 5-325 Tablet (Acetaminophen/Hydrocodone Bitart) 1 Each Tablet 0.5-1 Tab PO PRN Q6HRS PRN Prednisone 20 Mg Tablet 2 Tab PO DAILY Start this medication tomorrow, Saturday03/11/19 Peridex (Chlorhexidine Gluconate) 15 Ml Mouthwash 15 Ml PO BID Vitals/I & O Vital Sign - Last 24 Hours 05/04/19 05/04/19 05/04/19 05/04/19 18:49 18:59 19:29 19:44 Temp 98.7 98.7 Pulse 137 136 133 126 Resp 18 B/P (MAP) 158/94 (115) 158/94 (115) 151/100 (117) 137/76 (96) Pulse Ox 91 92 92 94 O2 Delivery Room Air Room Air Room Air Room Air 05/04/19 05/04/19 05/04/19 05/04/19 19:59 20:14 20:59 21:43 Temp 97.8 97.8 Pulse 124 117 108 115 Resp 14 20 B/P (MAP) 129/74 (92) 125/73 (90) 135/88 (104) 130/89 (103) Pulse Ox 94 96 94 96 O2 Delivery Room Air Room Air Room Air Room Air 05/05/19 05/05/19 05/05/19 05/05/19 03:27 07:30 07:35 11:05 Temp 98.6 99.2 98.9 98.6 99.2 98.9 Pulse 119 86 102 Resp 20 20 B/P (MAP) 135/84 (101) 152/95 (114) 166/88 (114) Pulse Ox 91 94 97 96 O2 Delivery Room Air Room Air Room Air Room Air Intake and Output 05/04/19 05/04/19 05/05/19 14:59 22:59 06:59 Intake Total 630 ml Balance 630 ml SHADY ERAZO MD May 05, 2019 11:27
--- NOTE | 2019-05-05 12:22 | NUR ---
JOSELIN consulted for homelessness Chart reviewed. JOSELIN phoned PAT team and Eliud met with pt. Pt is agreeable to go to [facility] once medically stable for services. Eliud reported PAT team can be called to re-eval pt for [facility] once medically cleared. Will continue to follow.
--- NOTE | 2019-05-05 13:17 | RAD ---
EXAM: Pelvic sonogram. HISTORY: Elevated liver function laboratory values. TECHNIQUE: Sonographic imaging of the abdomen was performed. COMPARISON: None. FINDINGS: There is hepatomegaly and hepatic steatosis. No focal hepatic lesion is seen. The gallbladder is unremarkable. The common bile duct is normal in caliber. The right kidney, pancreas and inferior vena cava are unremarkable. IMPRESSION: Hepatomegaly and hepatic steatosis. Electronically signed by: Sridevi De La O MD (05/05/2019 1:14 PM) [place] [id number]
[2019-05-05 15:04] VITALS: BP 133/85
[2019-05-05 19:53] VITALS: BP 132/93
[2019-05-05] MEDS: ENOXAPARIN 40 MG/0.4 ML SYRINGE. SQ SCH (20:16)
[2019-05-05 23:45] VITALS: BP 143/98
[2019-05-06 03:57] VITALS: BP 150/101
[2019-05-06 05:28] LABS: ALBUMIN 3.3 g/dL (3.4-5.0); CALCIUM 9.5 mg/dL (8.5-10.1); CREATININE 0.6 mg/dL (0.7-1.3); DIRECT BILIRUBIN 0.3 mg/dL (0.0-0.2); POTASSIUM 3.2 mmol/L (3.5-5.1); TOTAL BILIRUBIN 1.2 mg/dL (0.2-1.0); TOTAL PROTEIN 7.1 g/dL (6.4-8.2)
[2019-05-06] MEDS: IPRATRPIUM/ALBUTEROL 0.5/2.5MG 3 ML NEBU. NEB SCH ×5 (07:30→22:00)
[2019-05-06] MEDS: BUDESONIDE 0.5 MG/2 ML NEBU. NEB SCH ×2 (07:30→19:59)
[2019-05-06 07:53] VITALS: BP 155/104
[2019-05-06] MEDS: LORazepam 0.5 MG TABLET PO SCH ×2 (08:43→20:35)
[2019-05-06] MEDS: NICOTINE 21MG PATCH. TD PRN (08:44)
[2019-05-06] MEDS: MULTIVIT INFUSN,ADULT 4,VIT K 10 ML, THIAMINE INJ 100 MG, FOLIC ACID INJ 1 MG in IV NOR... IV SCH (08:44)
[2019-05-06] MEDS ORDERED: POTASSIUM CHLORIDE 20 MEQ TABLET.ER. PO ONE (09:00)
[2019-05-06] MEDS ORDERED: LOPERAMIDE 2 MG CAPSULE PO PRN (10:15)
[2019-05-06 11:33] VITALS: BP 145/106
--- NOTE | 2019-05-06 12:33 | NUR ---
Clarisse from PAT team will see pt today. RN notified.
--- NOTE | 2019-05-06 12:55 | NUR ---
SW following pt. Pt seen by PAT team, not medically stable to go to [facility]. Will re-evaluate tomorrow.
[2019-05-06 15:00] VITALS: BP 116/72
[2019-05-06] MEDS: HALOPERIDOL LACTATE 5 MG/ML VIAL. IVP PRN ×2 (15:18→23:18)
--- NOTE | 2019-05-06 17:30 | PDOC ---
PROGRESS NOTES Chief Complaint Chief Complaint still feels withdrawal. score of 10 this AM. denies chest pain sob nausea vomiting diarrhea. asking for something to move his bowels History of Present Illness History of Present Illness acute alcohol withdrawl: continue ativan prn. toxic encephalopathy improving, EtOH level > 300 elevated LFTs: check hep panel-neg. likely due to etoh. check US of liver- fatty liver dz acute metabolic acidosis with gap from ETOH- resolved asthma and COPD, nebs tobacco use disorder, patch dvt ppx: heparin sq full code dc once withdrawal improves. patient [facility]- consult Vitals Vitals Vital Signs Date Time Temp Pulse Resp B/P (MAP) Pulse Ox O2 Delivery O2 Flow Rate FiO2 05/06/19 15:23 96 Room Air 05/06/19 15:00 99.0 69 18 116/72 (87) 99.0 Physical Exam General: Alert, Oriented X3, Cooperative, moderate distress Abdomen: Normal bowel sounds (tender, ), Soft Extremities: No cyanosis, No edema, Normal pulses Skin: No rashes Labs LABS Laboratory Tests Test 05/06/19 03:40 Sodium Level 140 mmol/L (136-145) Potassium Level 3.2 mmol/L (3.5-5.1) Chloride Level 101 mmol/L (98-107) Carbon Dioxide Level 27 mmol/L (21-32) Anion Gap 12 (6-14) Blood Urea Nitrogen 9 mg/dL (8-26) Creatinine 0.6 mg/dL (0.7-1.3) Estimated GFR (Cockcroft-Gault) 150.0 Glucose Level 81 mg/dL (70-99) Calcium Level 9.5 mg/dL (8.5-10.1) Total Bilirubin 1.2 mg/dL (0.2-1.0) Direct Bilirubin 0.3 mg/dL (0.0-0.2) Aspartate Amino Transf (AST/SGOT) 105 U/L (15-37) Alanine Aminotransferase (ALT/SGPT) 81 U/L (16-63) Alkaline Phosphatase 131 U/L (46-116) Total Protein 7.1 g/dL (6.4-8.2) Albumin 3.3 g/dL (3.4-5.0) Assessment and Plan Assessmemt and Plan Problems Medical Problems: (1) Elevated liver function tests Status: Acute (2) Thrombocytopenia concurrent with and due to alcoholism Status: Acute Comment Review of Relevant I have reviewed the following items roseline (where applicable) has been applied. Labs Laboratory Tests Test 05/04/19 18:58 05/04/19 19:09 05/05/19 03:35 05/06/19 03:40 White Blood Count 9.5 x10^3/uL (4.0-11.0) 6.1 x10^3/uL (4.0-11.0) Red Blood Count 5.38 x10^6/uL (4.30-5.70) 4.74 x10^6/uL (4.30-5.70) Hemoglobin 19.3 g/dL (13.0-17.5) 16.8 g/dL (13.0-17.5) Hematocrit 54.4 % (39.0-53.0) 48.4 % (39.0-53.0) Mean Corpuscular Volume 101 fL (79-100) 102 fL (79-100) Mean Corpuscular Hemoglobin 36 pg (25-35) 36 pg (25-35) Mean Corpuscular Hemoglobin Concent 36 g/dL (31-37) 35 g/dL (31-37) Red Cell Distribution Width 16.2 % (11.5-14.5) 16.9 % (11.5-14.5) Platelet Count 117 x10^3/uL (140-400) 104 x10^3/uL (140-400) Neutrophils (%) (Auto) 66 % (31-73) 53 % (31-73) Lymphocytes (%) (Auto) 24 % (24-48) 34 % (24-48) Monocytes (%) (Auto) 9 % (0-9) 8 % (0-9) Eosinophils (%) (Auto) 0 % (0-3) 3 % (0-3) Basophils (%) (Auto) 1 % (0-3) 1 % (0-3) Neutrophils # (Auto) 6.2 x10^3/uL (1.8-7.7) 3.3 x10^3/uL (1.8-7.7) Lymphocytes # (Auto) 2.3 x10^3/uL (1.0-4.8) 2.1 x10^3/uL (1.0-4.8) Monocytes # (Auto) 0.8 x10^3/uL (0.0-1.1) 0.5 x10^3/uL (0.0-1.1) Eosinophils # (Auto) 0.0 x10^3/uL (0.0-0.7) 0.2 x10^3/uL (0.0-0.7) Basophils # (Auto) 0.1 x10^3/uL (0.0-0.2) 0.1 x10^3/uL (0.0-0.2) Prothrombin Time 11.3 SEC (11.7-14.0) Prothromb Time International Ratio 0.9 (0.8-1.1) Sodium Level 137 mmol/L (136-145) 139 mmol/L (136-145) 140 mmol/L (136-145) Potassium Level 4.0 mmol/L (3.5-5.1) 3.8 mmol/L (3.5-5.1) 3.2 mmol/L (3.5-5.1) Chloride Level 96 mmol/L (98-107) 100 mmol/L (98-107) 101 mmol/L (98-107) Carbon Dioxide Level 24 mmol/L (21-32) 27 mmol/L (21-32) 27 mmol/L (21-32) Anion Gap 17 (6-14) 12 (6-14) 12 (6-14) Blood Urea Nitrogen 12 mg/dL (8-26) 11 mg/dL (8-26) 9 mg/dL (8-26) Creatinine 0.8 mg/dL (0.7-1.3) 0.7 mg/dL (0.7-1.3) 0.6 mg/dL (0.7-1.3) Estimated GFR (Cockcroft-Gault) 107.6 125.5 150.0 Glucose Level 100 mg/dL (70-99) 72 mg/dL (70-99) 81 mg/dL (70-99) Calcium Level 10.0 mg/dL (8.5-10.1) 9.5 mg/dL (8.5-10.1) 9.5 mg/dL (8.5-10.1) Magnesium Level 1.9 mg/dL (1.8-2.4) Total Bilirubin 0.6 mg/dL (0.2-1.0) 0.8 mg/dL (0.2-1.0) 1.2 mg/dL (0.2-1.0) Direct Bilirubin 0.2 mg/dL (0.0-0.2) 0.3 mg/dL (0.0-0.2) Aspartate Amino Transf (AST/SGOT) 254 U/L (15-37) 186 U/L (15-37) 105 U/L (15-37) Alanine Aminotransferase (ALT/SGPT) 144 U/L (16-63) 112 U/L (16-63) 81 U/L (16-63) Alkaline Phosphatase 193 U/L (46-116) 158 U/L (46-116) 131 U/L (46-116) Total Protein 9.0 g/dL (6.4-8.2) 7.6 g/dL (6.4-8.2) 7.1 g/dL (6.4-8.2) Albumin 4.2 g/dL (3.4-5.0) 3.6 g/dL (3.4-5.0) 3.3 g/dL (3.4-5.0) Lipase 222 U/L (73-393) Salicylates Level 9.3 mg/dL (2.8-20.0) Salicylate Last Dose Date Unknown Salicylate Last Dose Time Unknown Acetaminophen Level < 2 mcg/ml (10-30) Acetaminophen Last Dose Date Unknown Acetaminophen Last Dose Time Unknown Ethyl Alcohol Level 311 mg/dL (0-10) Urine Opiates Screen Neg (NEG) Urine Methadone Screen Neg (NEG) Urine Barbiturates Neg (NEG) Urine Phencyclidine Screen Neg (NEG) Urine Amphetamine/Methamphetamine Neg (NEG) Urine Benzodiazepines Screen Neg (NEG) Urine Cocaine Screen Neg (NEG) Urine Cannabinoids Screen Neg (NEG) Urine Ethyl Alcohol Pos (NEG) BUN/Creatinine Ratio 16 (6-20) Albumin/Globulin Ratio 0.9 (1.0-1.7) Hepatitis A IgM Antibody Nonreactive (Nonreactive) Hepatitis B Surface Antigen Nonreactive (Nonreactive) Hepatitis B Core IgM Antibody Nonreactive (Nonreactive) Hepatitis C IgG Antibody Nonreactive (Nonreactive) Laboratory Tests Test 05/06/19 03:40 Sodium Level 140 mmol/L (136-145) Potassium Level 3.2 mmol/L (3.5-5.1) Chloride Level 101 mmol/L (98-107) Carbon Dioxide Level 27 mmol/L (21-32) Anion Gap 12 (6-14) Blood Urea Nitrogen 9 mg/dL (8-26) Creatinine 0.6 mg/dL (0.7-1.3) Estimated GFR (Cockcroft-Gault) 150.0 Glucose Level 81 mg/dL (70-99) Calcium Level 9.5 mg/dL (8.5-10.1) Total Bilirubin 1.2 mg/dL (0.2-1.0) Direct Bilirubin 0.3 mg/dL (0.0-0.2) Aspartate Amino Transf (AST/SGOT) 105 U/L (15-37) Alanine Aminotransferase (ALT/SGPT) 81 U/L (16-63) Alkaline Phosphatase 131 U/L (46-116) Total Protein 7.1 g/dL (6.4-8.2) Albumin 3.3 g/dL (3.4-5.0) Medications Current Medications Ondansetron HCl (Zofran) 4 mg 1X ONCE IV Last administered on 05/04/19 19:28; Start 05/04/19 at 19:00; Stop 05/04/19 at 19:01; Status DC Multivitamins 10 ml/Thiamine HCl 100 mg/Folic Acid 1 mg/Sodium Chloride 1,011.2 ml @ 1,000 mls/ hr 1X ONCE IV Last administered on 05/04/19 19:16; Start 05/04/19 at 19:00; Stop 05/04/19 at 20:00; Status DC Lorazepam (Ativan Inj) 2 mg 1X ONCE IV Last administered on 05/04/19 19:12; Start 05/04/19 at 19:00; Stop 05/04/19 at 19:03; Status DC Sodium Chloride 1,000 ml @ 1,000 mls/hr 1X ONCE IV Last administered on 05/04/19 19:16; Start 05/04/19 at 19:15; Stop 05/04/19 at 20:14; Status DC Dicyclomine HCl (Bentyl) 10 mg 1X ONCE IM Last administered on 05/04/19 19:28; Start 05/04/19 at 19:15; Stop 05/04/19 at 19:16; Status DC Ondansetron HCl (Zofran) 4 mg PRN Q8HRS PRN IV NAUSEA/VOMITING Last administered on 05/05/19 20:17; Start 05/04/19 at 20:30; Stop 05/05/19 at 20:29; Status DC Acetaminophen (Tylenol) 650 mg PRN Q4HRS PRN PO FEVER; Start 05/04/19 at 20:30; Stop 05/05/19 at 20:29; Status DC Multivitamins 10 ml/Thiamine HCl 100 mg/Folic Acid 1 mg/Sodium Chloride 1,011.2 ml @ 100 mls/ hr DAILY IV Last administered on 05/06/19 08:44; Start 05/05/19 at 09:00; Stop 05/09/19 at 19:07 Lorazepam (Ativan Inj) 2 mg PRN Q1HR PRN IV For CIWA 8-14 Last administered on 05/05/19at 16:16; Start 05/04/19 at 20:30 Lorazepam (Ativan Inj) 4 mg PRN Q1HR PRN IV For CIWA 15 or greater Last administered on 05/06/19 13:07; Start 05/04/19 at 20:30 Haloperidol Lactate (Haldol Inj) 5 mg PRN Q4HRS PRN IVP Hallucinatns,Confusn,Delirium Last administered on 05/06/19 15:18; Start 05/04/19 at 20:30 Clonidine HCl (Catapres) 0.1 mg PRN Q1HR PRN PO SBP > 180 or DBP > 100, MRX3; Start 05/04/19 at 20:30 Lorazepam (Ativan Inj) 2 mg 1X ONCE IV Last administered on 05/04/19 21:12; Start 05/04/19 at 21:15; Stop 05/04/19 at 21:18; Status DC Albuterol/ Ipratropium (Duoneb) 3 ml Q4HRS W/A NEB Last administered on 05/06/19 15:22; Start 05/04/19 at 22:00 Budesonide (Pulmicort) 0.5 mg BID NEB Last administered on 05/06/19 07:30; Start 05/05/19 at 09:00 Lorazepam (Ativan) 1 mg BID PO Last administered on 05/06/19 08:44; Start 05/05/19 at 09:00 Nicotine (Nicoderm Cq 21mg) 1 patch PRN DAILY PRN TD SMOKING CESSATION Last administered on 05/06/19 08:44; Start 05/04/19 at 21:15 Enoxaparin Sodium (Lovenox Per Pharmacy Prophylaxis Dosing) 1 each PRN DAILY PRN MC SEE COMMENTS; Start 05/04/19 at 21:15 Enoxaparin Sodium (Lovenox 40mg Syringe) 40 mg Q24H SQ Last administered on 05/05/19at 20:17; Start 05/04/19 at 21:30 Influenza Virus Vaccine Quadrival (Afluria Quad 2019-20 (3yr Up) Syringe) 0.5 ml ONCE ONCE VAX IM Last administered on 05/05/19 09:10; Start 05/05/19 at 09:00; Stop 05/05/19 at 09:01; Status DC Info (FLU VACCINE SCREEN per RX) 1 each PRN 1X PRN MC SEE COMMENTS; Start 05/04/19 at 22:30; Status Cancel Potassium Chloride (Klor-Con) 40 meq 1X ONCE PO Last administered on 05/06/19at 08:44; Start 05/06/19 at 09:00; Stop 05/06/19 at 09:01; Status DC Loperamide HCl (Imodium) 2 mg PRN Q6HRS PRN PO DIARRHEA Last administered on 05/06/19at 10:34; Start 05/06/19 at 10:15 Active Scripts Active Augmentin 875-125 Tablet (Amoxicillin/Potassium Clav) 1 Each Tablet 1 Tab PO BID [place] 5-325 Tablet (Acetaminophen/Hydrocodone Bitart) 1 Each Tablet 0.5-1 Tab PO PRN Q6HRS PRN Prednisone 20 Mg Tablet 2 Tab PO DAILY Start this medication tomorrow, Saturday03/11/19 Peridex (Chlorhexidine Gluconate) 15 Ml Mouthwash 15 Ml PO BID Vitals/I & O Vital Sign - Last 24 Hours 05/05/19 05/05/19 05/05/19 05/05/19 19:39 19:40 19:53 20:00 Temp 98.2 98.2 Pulse 106 Resp 20 B/P (MAP) 132/93 (106) Pulse Ox 94 94 96 O2 Delivery Room Air Room Air Room Air Room Air 05/05/19 05/06/19 05/06/19 05/06/19 23:45 03:57 07:32 07:53 Temp 98.3 98.5 98.9 98.3 98.5 98.9 Pulse 78 82 93 Resp 18 18 14 B/P (MAP) 143/98 (113) 150/101 (117) 155/104 (121) Pulse Ox 97 96 95 92 O2 Delivery Room Air Room Air Room Air Room Air 05/06/19 05/06/19 05/06/19 05/06/19 08:00 11:33 11:44 15:00 Temp 98.1 99.0 98.1 99.0 Pulse 90 69 Resp 16 18 B/P (MAP) 145/106 (119) 116/72 (87) Pulse Ox 95 95 99 O2 Delivery Room Air Room Air Room Air Room Air 05/06/19 15:23 Pulse Ox 96 O2 Delivery Room Air Intake and Output 05/05/19 05/05/19 05/06/19 15:00 23:00 07:00 Intake Total 360 ml 340 ml 100 ml Output Total 300 ml 304 ml Balance 60 ml 36 ml 100 ml SHADY ERAZO MD May 06, 2019 17:30
[2019-05-06 19:20] VITALS: BP 130/89
[2019-05-06] MEDS: ENOXAPARIN 40 MG/0.4 ML SYRINGE. SQ SCH (20:35)
[2019-05-06 23:15] VITALS: BP 149/106
[2019-05-07 03:23] VITALS: BP 134/90
[2019-05-07] MEDS: IPRATRPIUM/ALBUTEROL 0.5/2.5MG 3 ML NEBU. NEB SCH ×5 (06:00→22:00)
[2019-05-07] MEDS: BUDESONIDE 0.5 MG/2 ML NEBU. NEB SCH ×2 (06:12→20:00)
[2019-05-07 07:00] VITALS: BP 131/85
[2019-05-07] MEDS: LORazepam 0.5 MG TABLET PO SCH ×2 (08:33→20:45)
[2019-05-07] MEDS: MULTIVIT INFUSN,ADULT 4,VIT K 10 ML, THIAMINE INJ 100 MG, FOLIC ACID INJ 1 MG in IV NOR... IV SCH (08:52)
[2019-05-07] MEDS: NICOTINE 21MG PATCH. TD PRN (09:21)
[2019-05-07] MEDS: HALOPERIDOL LACTATE 5 MG/ML VIAL. IVP PRN ×3 (09:22→19:28)
--- NOTE | 2019-05-07 09:35 | PDOC ---
PROGRESS NOTES Chief Complaint Chief Complaint denies chest pain sob nausea vomiting diarrhea. History of Present Illness History of Present Illness impression severe alcohol abuse acute alcohol withdrawal: continue ativan prn. toxic encephalopathy improving, EtOH level > 300 elevated LFTs: check hep panel-neg. likely due to etoh. check US of liver- fatty liver dz acute metabolic acidosis with gap from ETOH- resolved asthma and COPD, nebs tobacco use disorder, patch dvt ppx: heparin sq full code dc once withdrawal improves. d/c to treatment program 05/07 patient homeless- consult 33 min d/c planning time Vitals Vitals Vital Signs Date Time Temp Pulse Resp B/P (MAP) Pulse Ox O2 Delivery O2 Flow Rate FiO2 05/07/19 07:00 99.4 76 16 131/85 (100) 95 Room Air 99.4 Physical Exam General: Alert, Oriented X3, Cooperative, No acute distress Heart: Regular rate, Normal S1, Normal S2 Lungs: Clear Abdomen: Normal bowel sounds (tender, ), Soft Extremities: No clubbing, No cyanosis, No edema, Normal pulses Skin: No rashes Assessment and Plan Assessmemt and Plan Problems Medical Problems: (1) Elevated liver function tests Status: Acute (2) Thrombocytopenia concurrent with and due to alcoholism Status: Acute Comment Review of Relevant I have reviewed the following items roseline (where applicable) has been applied. Labs Laboratory Tests Test 05/06/19 03:40 Sodium Level 140 mmol/L (136-145) Potassium Level 3.2 mmol/L (3.5-5.1) Chloride Level 101 mmol/L (98-107) Carbon Dioxide Level 27 mmol/L (21-32) Anion Gap 12 (6-14) Blood Urea Nitrogen 9 mg/dL (8-26) Creatinine 0.6 mg/dL (0.7-1.3) Estimated GFR (Cockcroft-Gault) 150.0 Glucose Level 81 mg/dL (70-99) Calcium Level 9.5 mg/dL (8.5-10.1) Total Bilirubin 1.2 mg/dL (0.2-1.0) Direct Bilirubin 0.3 mg/dL (0.0-0.2) Aspartate Amino Transf (AST/SGOT) 105 U/L (15-37) Alanine Aminotransferase (ALT/SGPT) 81 U/L (16-63) Alkaline Phosphatase 131 U/L (46-116) Total Protein 7.1 g/dL (6.4-8.2) Albumin 3.3 g/dL (3.4-5.0) Medications Current Medications Ondansetron HCl (Zofran) 4 mg 1X ONCE IV Last administered on 05/04/19at 19:28; Start 05/04/19 at 19:00; Stop 05/04/19 at 19:01; Status DC Multivitamins 10 ml/Thiamine HCl 100 mg/Folic Acid 1 mg/Sodium Chloride 1,011.2 ml @ 1,000 mls/ hr 1X ONCE IV Last administered on 05/04/19at 19:16; Start 05/04/19 at 19:00; Stop 05/04/19 at 20:00; Status DC Lorazepam (Ativan Inj) 2 mg 1X ONCE IV Last administered on 05/04/19at 19:12; Start 05/04/19 at 19:00; Stop 05/04/19 at 19:03; Status DC Sodium Chloride 1,000 ml @ 1,000 mls/hr 1X ONCE IV Last administered on 05/04/19at 19:16; Start 05/04/19 at 19:15; Stop 05/04/19 at 20:14; Status DC Dicyclomine HCl (Bentyl) 10 mg 1X ONCE IM Last administered on 05/04/19at 19:2 8; Start 05/04/19 at 19:15; Stop 05/04/19 at 19:16; Status DC Ondansetron HCl (Zofran) 4 mg PRN Q8HRS PRN IV NAUSEA/VOMITING Last administered on 05/05/19at 20:17; Start 05/04/19 at 20:30; Stop 05/05/19 at 20:29; Status DC Acetaminophen (Tylenol) 650 mg PRN Q4HRS PRN PO FEVER; Start 05/04/19 at 20:30; Stop 05/05/19 at 20:29; Status DC Multivitamins 10 ml/Thiamine HCl 100 mg/Folic Acid 1 mg/Sodium Chloride 1,011.2 ml @ 100 mls/ hr DAILY IV Last administered on 05/07/19at 08:52; Start 05/05/19 at 09:00; Stop 05/09/19 at 19:07 Lorazepam (Ativan Inj) 2 mg PRN Q1HR PRN IV For CIWA 8-14 Last administered on 05/05/19 16:16; Start 05/04/19 at 20:30 Lorazepam (Ativan Inj) 4 mg PRN Q1HR PRN IV For CIWA 15 or greater Last administered on 05/06/19 13:07; Start 05/04/19 at 20:30 Haloperidol Lactate (Haldol Inj) 5 mg PRN Q4HRS PRN IVP Hallucinatns,Confusn,Delirium Last administered on 05/07/19 09:22; Start 05/04/19 at 20:30 Clonidine HCl (Catapres) 0.1 mg PRN Q1HR PRN PO SBP > 180 or DBP > 100, MRX3 Last administered on 05/06/19 23:18; Start 05/04/19 at 20:30 Lorazepam (Ativan Inj) 2 mg 1X ONCE IV Last administered on 05/04/19 21:12; Start 05/04/19 at 21:15; Stop 05/04/19 at 21:18; Status DC Albuterol/ Ipratropium (Duoneb) 3 ml Q4HRS W/A NEB Last administered on 05/07/19 06:00; Start 05/04/19 at 22:00 Budesonide (Pulmicort) 0.5 mg BID NEB Last administered on 05/07/19 06:12; S tart 05/05/19 at 09:00 Lorazepam (Ativan) 1 mg BID PO Last administered on 05/07/19 08:33; Start 05/05/19 at 09:00 Nicotine (Nicoderm Cq 21mg) 1 patch PRN DAILY PRN TD SMOKING CESSATION Last administered on 05/07/19 09:21; Start 05/04/19 at 21:15 Enoxaparin Sodium (Lovenox Per Pharmacy Prophylaxis Dosing) 1 each PRN DAILY PRN MC SEE COMMENTS; Start 05/04/19 at 21:15 Enoxaparin Sodium (Lovenox 40mg Syringe) 40 mg Q24H SQ Last administered on 05/06/19 20:35; Start 05/04/19 at 21:30 Influenza Virus Vaccine Quadrival (Afluria Quad 2019-20 (3yr Up) Syringe) 0.5 ml ONCE ONCE VAX IM Last administered on 9/24/19at 09:10; Start 05/05/19 at 09:00; Stop 05/05/19 at 09:01; Status DC Info (FLU VACCINE SCREEN per RX) 1 each PRN 1X PRN MC SEE COMMENTS; Start 05/04 at 22:30; Status Cancel Potassium Chloride (Klor-Con) 40 meq 1X ONCE PO Last administered on 05/06/19at 08:44; Start 05/06/19 at 09:00; Stop 05/06/19 at 09:01; Status DC Loperamide HCl (Imodium) 2 mg PRN Q6HRS PRN PO DIARRHEA Last administered on at 10:34; Start 05/06/19 at 10:15 Active Scripts Active Augmentin 875-125 Tablet (Amoxicillin/Potassium Clav) 1 Each Tablet 1 Tab PO BID [place] 5-325 Tablet (Acetaminophen/Hydrocodone Bitart) 1 Each Tablet 0.5-1 Tab PO PRN Q6HRS PRN Prednisone 20 Mg Tablet 2 Tab PO DAILY Start this medication tomorrow, Saturday03/11/19 Peridex (Chlorhexidine Gluconate) 15 Ml Mouthwash 15 Ml PO BID Vitals/I & O Vital Sign - Last 24 Hours 05/06/19 05/06/19 05/06/19 05/06/19 11:33 11:44 15:00 15:23 Temp 98.1 99.0 98.1 99.0 Pulse 90 69 Resp 16 18 B/P (MAP) 145/106 (119) 116/72 (87) Pulse Ox 95 95 99 96 O2 Delivery Room Air Room Air Room Air Room Air 05/06/19 05/06/19 05/06/19 05/06/19 19:20 20:02 20:41 23:15 Temp 98.6 97.9 98.6 97.9 Pulse 83 95 Resp 16 20 B/P (MAP) 130/89 (103) 149/106 (120) Pulse Ox 93 95 97 O2 Delivery Room Air Room Air Room Air Room Air 05/06/19 05/07/19 05/07/19 05/07/19 23:18 03:23 06:12 06:13 Temp 97.7 97.7 Pulse 95 65 Resp 16 B/P (MAP) 149/106 134/90 (105) Pulse Ox 95 96 96 O2 Delivery Room Air Room Air Room Air 05/07/19 07:00 Temp 99.4 99.4 Pulse 76 Resp 16 B/P (MAP) 131/85 (100) Pulse Ox 95 O2 Delivery Room Air Intake and Output 05/06/19 05/06/19 05/07/19 15:00 23:00 07:00 Intake Total 410 ml 240 ml Output Total 900 ml Balance 410 ml -660 ml YAMIL PORTILLO MD May 07, 2019 09:35
[2019-05-07 11:00] VITALS: BP 149/99
--- NOTE | 2019-05-07 11:39 | NUR ---
SW following pt. Pt seen by PAT team today, and is doing much better. Per RN, pt is able to ambulate to/from bathroom. PAT team has initiated referral to [facility]. Will await on acceptance decision and RN will arrange transport by cab.
[2019-05-07] MEDS ORDERED: POTASSIUM CHLORIDE 20 MEQ TABLET.ER. PO ONE (13:15)
[2019-05-07 15:00] VITALS: BP 160/102
--- NOTE | 2019-05-07 16:21 | NUR ---
SW following pt. [facility] has accepted pt and Physician would like to keep pt overnight to control withdrawal symptoms. Anticipate dc to [facility] tomorrow. Discussed with RN.
[2019-05-07 19:06] VITALS: BP 139/101
[2019-05-07] MEDS: ENOXAPARIN 40 MG/0.4 ML SYRINGE. SQ SCH (20:45)
[2019-05-07 23:25] VITALS: BP 123/84
[2019-05-08 03:56] VITALS: BP 122/83
[2019-05-08 07:00] VITALS: BP 143/91
--- NOTE | 2019-05-08 07:34 | PDOC ---
PROGRESS NOTES Chief Complaint Chief Complaint denies chest pain sob nausea vomiting diarrhea. MAY HAVE SMOKED IN ROOM EARLIER, CHOSE TO LEAVE AMA History of Present Illness History of Present Illness DISCHARGE DX severe alcohol abuse acute alcohol withdrawal: continue ativan prn. toxic encephalopathy improving, EtOH level > 300 elevated LFTs: check hep panel-neg. likely due to etoh. check US of liver- fatty liver dz acute metabolic acidosis with gap from ETOH- resolved asthma and COPD, nebs tobacco use disorder, patch dvt ppx: heparin sq full code dc once withdrawal improves. d/c to treatment program 05/07 patient homeless- consult 33 min d/c planning time LEFT AMA Vitals Vitals Vital Signs Date Time Temp Pulse Resp B/P (MAP) Pulse Ox O2 Delivery O2 Flow Rate FiO2 05/08/19 03:56 98.0 74 20 122/83 (96) 100 Room Air 98.0 Physical Exam General: Alert, Oriented X3, Cooperative, No acute distress Heart: Regular rate, Normal S1, Normal S2 Lungs: Clear Abdomen: Normal bowel sounds (tender, ), Soft Extremities: No clubbing, No cyanosis, No edema, Normal pulses Skin: No rashes Assessment and Plan Assessmemt and Plan Problems Medical Problems: (1) Elevated liver function tests Status: Acute (2) Thrombocytopenia concurrent with and due to alcoholism Status: Acute Comment Review of Relevant I have reviewed the following items roseline (where applicable) has been applied. Medications Current Medications Ondansetron HCl (Zofran) 4 mg 1X ONCE IV Last administered on 05/04/19at 19:28; Start 05/04/19 at 19:00; Stop 05/04/19 at 19:01; Status DC Multivitamins 10 ml/Thiamine HCl 100 mg/Folic Acid 1 mg/Sodium Chloride 1,011.2 ml @ 1,000 mls/ hr 1X ONCE IV Last administered on 05/04/19at 19:16; Start 05/04/19 at 19:00; Stop 05/04/19 at 20:00; Status DC Lorazepam (Ativan Inj) 2 mg 1X ONCE IV Last administered on 05/04/19at 19:12; Start 05/04/19 at 19:00; Stop 05/04/19 at 19:03; Status DC Sodium Chloride 1,000 ml @ 1,000 mls/hr 1X ONCE IV Last administered on 05/04/19 19:16; Start 05/04/19 at 19:15; Stop 05/04/19 at 20:14; Status DC Dicyclomine HCl (Bentyl) 10 mg 1X ONCE IM Last administered on 05/04/19 19:28; Start 05/04/19 at 19:15; Stop 05/04/19 at 19:16; Status DC Ondansetron HCl (Zofran) 4 mg PRN Q8HRS PRN IV NAUSEA/VOMITING Last administered on 05/05/19 20:17; Start 05/04/19 at 20:30; Stop 05/05/19 at 20:29; Status DC Acetaminophen (Tylenol) 650 mg PRN Q4HRS PRN PO FEVER; Start 05/04/19 at 20:30; Stop 05/05/19 at 20:29; Status DC Multivitamins 10 ml/Thiamine HCl 100 mg/Folic Acid 1 mg/Sodium Chloride 1,011.2 ml @ 100 mls/ hr DAILY IV Last administered on 05/07/19 08:52; Start 05/05/19 at 09:00; Stop 05/09/19 at 19:07 Lorazepam (Ativan Inj) 2 mg PRN Q1HR PRN IV For CIWA 8-14 Last administered on 05/05/19 16:16; Start 05/04/19 at 20:30 Lorazepam (Ativan Inj) 4 mg PRN Q1HR PRN IV For CIWA 15 or greater Last administered on 05/07/19at 18:02; Start 05/04/19 at 20:30 Haloperidol Lactate (Haldol Inj) 5 mg PRN Q4HRS PRN IVP Hallucinatns,Confusn,Delirium Last administered on 05/07/19 19:28; Start 05/04/19 at 20:30 Clonidine HCl (Catapres) 0.1 mg PRN Q1HR PRN PO SBP > 180 or DBP > 100, MRX3 Last administered on 05/06/19at 23:18; Start 05/04/19 at 20:30 Lorazepam (Ativan Inj) 2 mg 1X ONCE IV Last administered on 05/04/19 21:12; Start 05/04/19 at 21:15; Stop 05/04/19 at 21:18; Status DC Albuterol/ Ipratropium (Duoneb) 3 ml Q4HRS W/A NEB Last administered on 05/07/19 20:00; Start 05/04/19 at 22:00 Budesonide (Pulmicort) 0.5 mg BID NEB Last administered on 05/07/19 20:00; Start 05/05/19 at 09:00 Lorazepam (Ativan) 1 mg BID PO Last administered on 05/07/19 20:45; Start 05/05/19 at 09:00 Nicotine (Nicoderm Cq 21mg) 1 patch PRN DAILY PRN TD SMOKING CESSATION Last administered on 05/07/19 09:21; Start 05/04/19 at 21:15 Enoxaparin Sodium (Lovenox Per Pharmacy Prophylaxis Dosing) 1 each PRN DAILY PRN MC SEE COMMENTS; Start 05/04/19 at 21:15 Enoxaparin Sodium (Lovenox 40mg Syringe) 40 mg Q24H SQ Last administered on 05/07/19at 20:45; Start 05/04/19 at 21:30 Influenza Virus Vaccine Quadrival (Afluria Quad 2019-20 (3yr Up) Syringe) 0.5 ml ONCE ONCE VAX IM Last administered on 05/05/19 09:10; Start 05/05/19 at 09:00; Stop 05/05/19 at 09:01; Status DC Info (FLU VACCINE SCREEN per RX) 1 each PRN 1X PRN [facility] SEE COMMENTS; Start 05/04/19 at 22:30; Status Cancel Potassium Chloride (Klor-Con) 40 meq 1X ONCE PO Last administered on 05/06/19at 08:44; Start 05/06/19 at 09:00; Stop 05/06/19 at 09:01; Status DC Loperamide HCl (Imodium) 2 mg PRN Q6HRS PRN PO DIARRHEA Last administered on 05/06/19at 10:34; Start 05/06/19 at 10:15 Potassium Chloride (Klor-Con) 40 meq 1X ONCE PO Last administered on 05/07/19 14:58; Start 05/07/19 at 13:15; Stop 05/07/19 at 13:16; Status DC Potassium Chloride (Klor-Con) 20 meq DAILYWBKFT PO ; Start 05/08/19 at 08:00 Active Scripts Active Augmentin 875-125 Tablet (Amoxicillin/Potassium Clav) 1 Each Tablet 1 Tab PO BID [place] 5-325 Tablet (Acetaminophen/Hydrocodone Bitart) 1 Each Tablet 0.5-1 Tab PO PRN Q6HRS PRN Prednisone 20 Mg Tablet 2 Tab PO DAILY Start this medication tomorrow, Saturday03/11/19 Peridex (Chlorhexidine Gluconate) 15 Ml Mouthwash 15 Ml PO BID Vitals/I & O Vital Sign - Last 24 Hours 05/07/19 05/07/19 05/07/19 05/07/19 08:00 10:54 11:00 15:00 Temp 97.8 99.7 97.8 99.7 Pulse 95 82 Resp 16 14 B/P (MAP) 149/99 (116) 160/102 (121) Pulse Ox 96 96 93 O2 Delivery Room Air Room Air Room Air Room Air 05/07/19 05/07/19 05/07/19 05/07/19 15:08 19:06 20:00 20:01 Temp 98.3 98.3 Pulse 88 Resp 18 B/P (MAP) 139/101 (114) Pulse Ox 94 O2 Delivery Room Air Room Air Room Air Room Air 05/07/19 05/08/19 23:25 03:56 Temp 98.2 98.0 98.2 98.0 Pulse 84 74 Resp 20 20 B/P (MAP) 123/84 (97) 122/83 (96) Pulse Ox 96 100 O2 Delivery Room Air Room Air Intake and Output 05/07/19 05/07/19 05/08/19 15:00 23:00 07:00 Intake Total 350 ml 200 ml Balance 350 ml 200 ml YAMIL PORTILLO MD May 08, 2019 07:34
[2019-05-08] MEDS: IPRATRPIUM/ALBUTEROL 0.5/2.5MG 3 ML NEBU. NEB SCH (07:42)
[2019-05-08] MEDS: BUDESONIDE 0.5 MG/2 ML NEBU. NEB SCH (07:42)
[2019-05-08] MEDS ORDERED: POTASSIUM CHLORIDE 20 MEQ TABLET.ER. PO SCH (08:00)
[2019-05-08] MEDS: LORazepam 0.5 MG TABLET PO SCH (08:15)
[2019-05-08] MEDS: MULTIVIT INFUSN,ADULT 4,VIT K 10 ML, THIAMINE INJ 100 MG, FOLIC ACID INJ 1 MG in IV NOR... IV SCH (08:16)
[2019-05-08] MEDS: HALOPERIDOL LACTATE 5 MG/ML VIAL. IVP PRN (08:33)
--- NOTE | 2019-05-08 10:19 | PDOC3 ---
Discharge Summary Date of Admission: May 04, 2019 Date of Discharge: May 08, 2019 Follow-Up: 1-2 days Admitting Diagnosis comment: DISCHARGE DX severe alcohol abuse acute alcohol withdrawal: continue ativan prn. toxic encephalopathy improving, EtOH level > 300 elevated LFTs: check hep panel-neg. likely due to etoh. check US of liver- fatty liver dz acute metabolic acidosis with gap from ETOH- resolved asthma and COPD, nebs tobacco use disorder, patch dvt ppx: heparin sq full code dc once withdrawal improves. d/c to treatment program 05/07 patient homeless- consult 33 min d/c planning time LEFT AMA Vitals Vitals Vital Signs Date Time Temp Pulse Resp B/P (MAP) Pulse Ox O2 Delivery O2 Flow Rate FiO2 05/08/19 03:56 98.0 74 20 122/83 (96) 100 Room Air 98.0 Physical Exam General: Alert, Oriented X3, Cooperative, No acute distress Heart: Regular rate, Normal S1, Normal S2 Lungs: Clear Abdomen: Normal bowel sounds (tender, ), Soft Extremities: No clubbing, No cyanosis, No edema, Normal pulses Skin: No rashes FINAL DIAGNOSIS Problems Medical Problems: (1) Elevated liver function tests Status: Acute (2) Thrombocytopenia concurrent with and due to alcoholism Status: Acute Brief Hospital Course Mr. Friedman is a 39 old [sex] who presented with [ ] CONDITION AT DISCHARGE: Comment (LEFT AMA) Discharge Medications Current Medications Ondansetron HCl (Zofran) 4 mg 1X ONCE IV Last administered on 05/04/19at 19:28; Start 05/04/19 at 19:00; Stop 05/04/19 at 19:01; Status DC Multivitamins 10 ml/Thiamine HCl 100 mg/Folic Acid 1 mg/Sodium Chloride 1,011.2 ml @ 1,000 mls/ hr 1X ONCE IV Last administered on 05/04/19at 19:16; Start 05/04/19 at 19:00; Stop 05/04/19 at 20:00; Status DC Lorazepam (Ativan Inj) 2 mg 1X ONCE IV Last administered on 05/04/19at 19:12; Start 05/04/19 at 19:00; Stop 05/04/19 at 19:03; Status DC Sodium Chloride 1,000 ml @ 1,000 mls/hr 1X ONCE IV Last administered on 05/04/19 19:16; Start 05/04/19 at 19:15; Stop 05/04/19 at 20:14; Status DC Dicyclomine HCl (Bentyl) 10 mg 1X ONCE IM Last administered on 05/04/19 19:28; Start 05/04/19 at 19:15; Stop 05/04/19 at 19:16; Status DC Ondansetron HCl (Zofran) 4 mg PRN Q8HRS PRN IV NAUSEA/VOMITING Last administered on 05/05/19 20:17; Start 05/04/19 at 20:30; Stop 05/05/19 at 20:29; Status DC Acetaminophen (Tylenol) 650 mg PRN Q4HRS PRN PO FEVER; Start 05/04/19 at 20:30; Stop 05/05/19 at 20:29; Status DC Multivitamins 10 ml/Thiamine HCl 100 mg/Folic Acid 1 mg/Sodium Chloride 1,011.2 ml @ 100 mls/ hr DAILY IV Last administered on 05/08/19 08:16; Start 05/05/19 at 09:00; Stop 05/09/19 at 19:07 Lorazepam (Ativan Inj) 2 mg PRN Q1HR PRN IV For CIWA 8-14 Last administered on 05/08/19 08:15; Start 05/04/19 at 20:30 Lorazepam (Ativan Inj) 4 mg PRN Q1HR PRN IV For CIWA 15 or greater Last administered on 05/07/19at 18:02; Start 05/04/19 at 20:30 Haloperidol Lactate (Haldol Inj) 5 mg PRN Q4HRS PRN IVP Hallucinatns,Confusn,Delirium Last administered on 05/08/19 08:33; Start 05/04/19 at 20:30 Clonidine HCl (Catapres) 0.1 mg PRN Q1HR PRN PO SBP > 180 or DBP > 100, MRX3 Last administered on 05/06/19 23:18; Start 05/04/19 at 20:30 Lorazepam (Ativan Inj) 2 mg 1X ONCE IV Last administered on 05/04/19at 21:12; Start 05/04/19 at 21:15; Stop 05/04/19 at 21:18; Status DC Albuterol/ Ipratropium (Duoneb) 3 ml Q4HRS W/A NEB Last administered on 05/08/19 07:42; Start 05/04/19 at 22:00 Budesonide (Pulmicort) 0.5 mg BID NEB Last administered on 05/08/19 07:42; Start 05/05/19 at 09:00 Lorazepam (Ativan) 1 mg BID PO Last administered on 05/08/19 08:15; Start 05/05/19 at 09:00 Nicotine (Nicoderm Cq 21mg) 1 patch PRN DAILY PRN TD SMOKING CESSATION Last administered on 05/07/19 09:21; Start 05/04/19 at 21:15 Enoxaparin Sodium (Lovenox Per Pharmacy Prophylaxis Dosing) 1 each PRN DAILY PRN MC SEE COMMENTS; Start 05/04/19 at 21:15 Enoxaparin Sodium (Lovenox 40mg Syringe) 40 mg Q24H SQ Last administered on 05/07/19at 20:45; Start 05/04/19 at 21:30 Influenza Virus Vaccine Quadrival (Afluria Quad 2019-20 (3yr Up) Syringe) 0.5 ml ONCE ONCE VAX IM Last administered on 05/05/19 09:10; Start 05/05/19 at 09:00; Stop 05/05/19 at 09:01; Status DC Info (FLU VACCINE SCREEN per RX) 1 each PRN 1X PRN MC SEE COMMENTS; Start 05/04/19 at 22:30; Status Cancel Potassium Chloride (Klor-Con) 40 meq 1X ONCE PO Last administered on 05/06/19 08:44; Start 05/06/19 at 09:00; Stop 05/06/19 at 09:01; Status DC Loperamide HCl (Imodium) 2 mg PRN Q6HRS PRN PO DIARRHEA Last administered on 05/06/19 10:34; Start 05/06/19 at 10:15 Potassium Chloride (Klor-Con) 40 meq 1X ONCE PO Last administered on 05/07/19 14:58; Start 05/07/19 at 13:15; Stop 05/07/19 at 13:16; Status DC Potassium Chloride (Klor-Con) 20 meq [id number] PO Last administered on 05/08/19at 08:33; Start 05/08/19 at 08:00 Active Scripts Active Augmentin 875-125 Tablet (Amoxicillin/Potassium Clav) 1 Each Tablet 1 Tab PO BID [place] 5-325 Tablet (Acetaminophen/Hydrocodone Bitart) 1 Each Tablet 0.5-1 Tab PO PRN Q6HRS PRN Prednisone 20 Mg Tablet 2 Tab PO DAILY Start this medication tomorrow, Saturday03/11/19 Peridex (Chlorhexidine Gluconate) 15 Ml Mouthwash 15 Ml PO BID Vital Signs Vital Signs Date Time Temp Pulse Resp B/P (MAP) Pulse Ox O2 Delivery O2 Flow Rate FiO2 05/08/19 07:47 94 Room Air 05/08/19 07:00 97.6 74 18 143/91 (108) 97.6 Allergies Allergies Coded Allergies Type Severity Reaction Last Updated Verified No Known Drug Allergies 03/10/19 No Disposition/Orders: D/C to Home YAMIL PORTILLO MD May 08, 2019 10:19
--- NOTE | 2019-05-08 10:21 | DISCH ---
DISCHARGE INSTRUCTIONS Condition on Discharge Condition on Discharge: Guarded Activity After Discharge Activity Instructions for Disc: Activity as tolerated Driving Instructions after Dis: Do not drive Weight Bearing Status after Di: As tolerated Diet after Discharge Diet after Discharge: Regular Contacting the DR. after DC Call your doctor for: If your condition worsens YAMIL PORTILLO MD May 08, 2019 10:21
--- NOTE | 2019-05-08 10:30 | NUR ---
Upon walking into patients room, the smell of smoke was noticed. Asked patient if he was smoking in his room, patient stated no. Educated patient on the importance of not smoking in the hospital, and educated patient that if we suspect patient are smoking that we have security come to go through patients belongings. Patient then stated he doesn't smoke only vape's, educated patient that vaping is also not allowed in the hospital. Security was notified, upon arrival with security patient refused security to check belongings and patient stated, he would just leave AMA. MD Shania notified of patients wish. Padmini nursing assistant shift supervisor notified. Question patient if he had someone to pick him up he stated no and then asked if had somewhere to go, then he stated he would figure it out and no need to worry. Security and staff was patient out, then patient stated he need a cab pass to go [facility]. Padmini nursing assistant shift supervisor noticed, cab pass obtained.
== END 2019-05-08 10:54 | disposition left against medical advice (07) | DRG 92 ==
LOC: ER 18:49 → 6 SOUTH 20:01
PROVIDERS: ADMIT Internal Medicine; ATTEND Internal Medicine
DX: G92 Toxic encephalopathy (principal); F10.239 Alcohol dependence with withdrawal, unspecified; E87.2 Acidosis; D69.6 Thrombocytopenia, unspecified; F17.210 Nicotine dependence, cigarettes, uncomplicated; J44.9 Chronic obstructive pulmonary disease, unspecified; Y90.8 Blood alcohol level of 240 mg/100 ml or more; Z59.0 Homelessness; R74.0 Nonspecific elevation of levels of transaminase and lactic acid dehydrogenase [LDH]; Z53.21 Procedure and treatment not carried out due to patient leaving prior to being seen by health care provider
CPT/HCPCS: 36415; 76705; 80048; 80053; 80076; 80307; 80329; 83690; 83735; 85025; 85610; 86705; 86709; 86803; 87340; 90471; 90686; 93005; 94640; 94760; 96361; 96365; 96372; 96375; 96376; G0480; J0500; J1630; J1650; J2060; J2405; J7030; J7620; J7626; 99285-25; G0378

== ENCOUNTER 2019-05-12 12:40 | Emergency (ER) | payer BC ==
[~2019-05-12] VITALS: Ht 180.3 cm; Wt 81.6 kg
[2019-05-12 14:08] VITALS: BP 119/80
--- NOTE | 2019-05-12 14:29 | PHYS DOC ---
Past Medical History Past Medical History: Asthma, COPD, Other Additional Past Medical Histor: DENTAL CARIES Past Surgical History: No Surgical History Additional Information: CIGARETTE AND VAPE Alcohol Use: Heavy Additional Information: "OH YEAH, LIKE A FISH. I HAVEN'T DRANK FOR THE LAST 10 DAYS BUT I DID TODAY". REPORTS 3 BEERS TODAY. Drug Use: None Social History Narrative: CBD OIL Adult General Chief Complaint Chief Complaint: SHORTNESS OF BREATH HPI HPI Patient is a 39 year old male that presents with shortness of breath. Patient states that he is homeless and been outside for several days and he says that he also felt short of breath and so he went to the [facility] and they took him to the ER. The patient states he no longer feels short of breath and feels better. No complaints currently. Review of Systems Review of Systems Constitutional: Denies fever or chills [] Eyes: Denies change in visual acuity, redness, or eye pain [] HENT: Denies nasal congestion or sore throat [] Respiratory: Denies cough or shortness of breath [] Cardiovascular: No additional information not addressed in HPI [] GI: Denies abdominal pain, nausea, vomiting, bloody stools or diarrhea [] : Denies dysuria or hematuria [] Musculoskeletal: Denies back pain or joint pain [] Integument: Denies rash or skin lesions [] Neurologic: Denies headache, focal weakness or sensory changes [] Endocrine: Denies polyuria or polydipsia [] Complete systems were reviewed and found to be within normal limits, except as d ocumented in this note. Allergies Allergies Allergies Coded Allergies Type Severity Reaction Last Updated Verified No Known Drug Allergies 03/10/19 No Physical Exam Physical Exam Constitutional: Well developed, well nourished, no acute distress, non-toxic appearance. [] HENT: Normocephalic, atraumatic, bilateral external ears normal, oropharynx moist, no oral exudates, nose normal. [] Eyes: PERRLA, EOMI, conjunctiva normal, no discharge. [] Neck: Normal range of motion, no tenderness, supple, no stridor. [] Cardiovascular:Heart rate regular rhythm, no murmur [] Lungs & Thorax: Bilateral breath sounds clear to auscultation [] Abdomen: Bowel sounds normal, soft, no tenderness, no masses, no pulsatile masses. [] Skin: Warm, dry, no erythema, no rash. [] Back: No tenderness, no CVA tenderness. [] Extremities: No tenderness, no cyanosis, no clubbing, ROM intact, no edema. [] Neurologic: Alert and oriented X 3, normal motor function, normal sensory function, no focal deficits noted. [] Psychologic: Affect normal, judgement normal, mood normal. [] Current Patient Data Vital Signs Vital Signs Date Time Temp Pulse Resp B/P (MAP) Pulse Ox O2 Delivery O2 Flow Rate FiO2 05/12/19 14:08 98.7 118 18 119/80 (93) 96 Room Air 98.7 EKG EKG [] Radiology/Procedures Radiology/Procedures [] Course & Med Decision Making Course & Med Decision Making Pertinent Labs and Imaging studies reviewed. (See chart for details) Patient does not appears to have any issues at this time. Will d/c home. Dragon Disclaimer Dragon Disclaimer This electronic medical record was generated, in whole or in part, using a voice recognition dictation system. Departure Departure Impression: Primary Impression: Encounter for medical screening examination Disposition: HOME, SELF-CARE Condition: STABLE Additional Instructions: Thank you for visiting [facility]. We appreciate you trusting us with your care. If any additional problems come up don't hesitate to return to visit us. Please follow up with your primary care provider so they can plan additional care if needed and know about the problem that you had. If symptoms worsen come back to the Emergency Department. Any concerning symptoms that start such as chest pain, shortness of air, weakness or numbness on one side of the body, running high fevers or any other concerning symptoms return to the ER. Scripts No Active Prescriptions or Reported Meds MOISE SALDIVAR APRN May 12, 2019 14:29
== END 2019-05-12 14:37 | disposition home or self-care (01) ==
LOC: ER 12:40
DX: R06.02 Shortness of breath (principal); J44.9 Chronic obstructive pulmonary disease, unspecified; F17.210 Nicotine dependence, cigarettes, uncomplicated
CPT/HCPCS: 99281; 99283

== ENCOUNTER 2019-05-16 15:50 | Emergency (ER) | payer BC ==
[~2019-05-16] VITALS: Ht 177.8 cm; Wt 81.6 kg
[2019-05-16 16:09] LABS: BASO % 0 % (0-3); EOS # 0.3 x10^3/uL (0.0-0.7); EOS % 4 % (0-3); HEMOGLOBIN 17.1 g/dL (13.0-17.5); LYMPH # 3.1 x10^3/uL (1.0-4.8); LYMPH % 44 % (24-48); MEAN CORPUSCULAR HEMOGLOBIN 36 pg (25-35); MEAN CORPUSCULAR HGB CONC 35 g/dL (31-37); MEAN CORPUSCULAR VOLUME 102 fL (79-100); MONO # 0.6 x10^3/uL (0.0-1.1); MONO % 8 % (0-9); NEUT # 3.1 x10^3/uL (1.8-7.7); NEUT % 44 % (31-73); PLATELET COUNT 378 x10^3/uL (140-400); RED CELL DISTRIBUTION WIDTH 15.4 % (11.5-14.5); WHITE BLOOD COUNT 7.2 x10^3/uL (4.0-11.0)
--- NOTE | 2019-05-16 16:25 | PHYS DOC ---
Past Medical History Past Medical History: Asthma, COPD, Other Additional Past Medical Histor: DENTAL CARIES Past Surgical History: No Surgical History Alcohol Use: Heavy Additional Information: 5 beers/daily Drug Use: None, Other Social History Narrative: CBD Adult General Chief Complaint Chief Complaint: MEDICAL CLEARANCE HPI HPI Patient is a 39 year old Male who presents with took a cab to [facility] this morning and he blew over the limit for alcohol and he has a history of withdrawal seizures and so they sent him to the ER. Police brought the patient here and stated that the patient had told them that he felt like he was given have a seizure. Patient tells emergency room staff that he feels fine and he does not feel like his can have a seizure. Patient states he is drinking 3 beers today and that all he's had today. Patient denies any pain and has no complaints. Patient was recently hospitalized here on May 04 for EtOH withdrawal and was supposed to follow-up with [facility] when he was discharged on May 08. However patient states "I didn't feel like going to [facility] so I went and lived in a she shed for a while." Patient has another emergency room visit on May 12 stating that he was short of air but then told nursing staff that he also felt fine but he just been living outside homeless for a while and was hot. Patient was discharged at that time. Patient states only medication he takes daily is trazodone. When asked if patient takes anything for seizures he states he uses CBD oil. Patient states he has no primary care provider. Patient states he has withdrawal seizures only. Patient has a history of COPD and asthma. Patient states that he Vapes and uses cigarettes. Review of Systems Review of Systems Constitutional: ETOH intoxication. Denies fever or chills [] All other systems were reviewed and found to be within normal limits, except as documented in this note. Current Medications Current Medications Current Medications Medications (Trade) Dose Ordered Sig/Mir Start Time Stop Time Status Last Admin Dose Admin Multivitamins 10 ml/Thiamine HCl 100 mg/Folic Acid 1 mg/Sodium Chloride 1,011.2 ml @ 1,000.088 mls/hr 1X ONCE 05/16/19 17:00 05/16/19 18:00 DC 05/16/19 16:51 1,000.088 MLS/HR Sodium Chloride 1,000 ml @ 1,000 mls/hr 1X ONCE 05/16/19 16:45 10/5/19 17:44 DC 05/16/19 16:52 1,000 MLS/HR Allergies Allergies Allergies Coded Allergies Type Severity Reaction Last Updated Verified No Known Drug Allergies 03/10/19 No Physical Exam Physical Exam Constitutional: Well developed, well nourished, no acute distress, non-toxic appearance. [] HENT: Normocephalic, atraumatic, bilateral external ears normal, oropharynx moist, no oral exudates, nose normal. [] Eyes: PERRLA, EOMI, conjunctiva normal, no discharge. [] Cardiovascular: Heart rate tachy regular rhythm, no murmur [] Lungs & Thorax: Bilateral breath sounds clear to auscultation [] Abdomen: Bowel sounds normal, soft, no tenderness, no masses, no pulsatile masses. [] Skin: Warm, dry, no erythema, no rash. [] Extremities: No tenderness, no cyanosis, no clubbing, ROM intact, no edema. [] Neurologic: Alert and oriented X 3, normal motor function, normal sensory function, no focal deficits noted. [] Psychologic: Affect normal, judgement normal, mood normal. [] Current Patient Data Vital Signs Vital Signs Date Time Temp Pulse Resp B/P (MAP) Pulse Ox O2 Delivery O2 Flow Rate FiO2 05/16/19 16:28 110 14 105/56 (72) 98 Room Air 05/16/19 16:00 98.1 98.1 Lab Values Laboratory Tests Test 05/16/19 16:00 White Blood Count 7.2 x10^3/uL (4.0-11.0) Red Blood Count 4.80 x10^6/uL (4.30-5.70) Hemoglobin 17.1 g/dL (13.0-17.5) Hematocrit 49.0 % (39.0-53.0) Mean Corpuscular Volume 102 fL (79-100) H Mean Corpuscular Hemoglobin 36 pg (25-35) H Mean Corpuscular Hemoglobin Concent 35 g/dL (31-37) Red Cell Distribution Width 15.4 % (11.5-14.5) H Platelet Count 378 x10^3/uL (140-400) Neutrophils (%) (Auto) 44 % (31-73) Lymphocytes (%) (Auto) 44 % (24-48) Monocytes (%) (Auto) 8 % (0-9) Eosinophils (%) (Auto) 4 % (0-3) H Basophils (%) (Auto) 0 % (0-3) Neutrophils # (Auto) 3.1 x10^3/uL (1.8-7.7) Lymphocytes # (Auto) 3.1 x10^3/uL (1.0-4.8) Monocytes # (Auto) 0.6 x10^3/uL (0.0-1.1) Eosinophils # (Auto) 0.3 x10^3/uL (0.0-0.7) Basophils # (Auto) 0.0 x10^3/uL (0.0-0.2) Prothrombin Time 11.3 SEC (11.7-14.0) L Prothrombin Time INR 0.9 (0.8-1.1) Sodium Level 148 mmol/L (136-145) H Potassium Level 3.5 mmol/L (3.5-5.1) Chloride Level 107 mmol/L (98-107) Carbon Dioxide Level 29 mmol/L (21-32) Anion Gap 12 (6-14) Blood Urea Nitrogen 5 mg/dL (8-26) L Creatinine 0.7 mg/dL (0.7-1.3) Estimated GFR (Cockcroft-Gault) 125.5 BUN/Creatinine Ratio 7 (6-20) Glucose Level 127 mg/dL (70-99) H Calcium Level 9.1 mg/dL (8.5-10.1) Total Bilirubin 0.1 mg/dL (0.2-1.0) L Aspartate Amino Transferase (AST) 93 U/L (15-37) H Alanine Aminotransferase (ALT) 87 U/L (16-63) H Alkaline Phosphatase 140 U/L (46-116) H Total Protein 7.7 g/dL (6.4-8.2) Albumin 3.8 g/dL (3.4-5.0) Albumin/Globulin Ratio 1.0 (1.0-1.7) Ethyl Alcohol Level 339 mg/dL (0-10) H Laboratory Tests 05/16/19 16:00 Laboratory Tests 05/16/19 16:00 EKG EKG Sinus Tachy and no STEMI[] Interpretation Time: [address] Nix Radiology/Procedures Radiology/Procedures [] Course & Med Decision Making Course & Med Decision Making Patient is a 39 year old Male who presents with took a cab to [facility] this morning and he blew over the limit for alcohol and he has a history of withdrawal seizures and so they sent him to the ER. Police brought the patient here and stated that the patient had told them that he felt like he was given have a seizure. Patient tells emergency room staff that he feels fine and he does not feel like his can have a seizure. Patient states he is drinking 3 beers today and that all he's had today. Patient denies any pain and has no complaints. Patient was recently hospitalized here on May 04 for EtOH withdrawal and was supposed to follow-up with [facility] when he was discharged on May 08. However patient states "I didn't feel like going to [facility] so I went and lived in a she shed for a while." Patient has another emergency room visit on May 12 stating that he was short of air but then told nursing staff that he also felt fine but he just been living outside homeless for a while and was hot. Patient was discharged at that time. Patient states only medication he takes daily is trazodone. When asked if patient takes anything for seizures he states he uses CBD oil. Patient states he has no primary care provider. Patient states he has withdrawal seizures only. Patient has a history of COPD and asthma. Patient sta joel that he Vapes and uses cigarettes. Patient rates his pain a 0 out of 10. Alert and oriented. Answers all my questions appropriately. Is ambulatory with a steady gait. Speaks in full clear sentences. Skin pink warm and dry. Patient denies headache, dizziness, syncope, chest pain, shortness of air, numbness or tingling, weakness, visual changes, abdominal pain, nausea, vomiting, diarrhea, dysuria. I have spoken to [facility] team Eliud and he is going in to speak with the patient. Lungs are clear of dictation all lobes. Abdomen is soft and nontender. No extremity swelling. PERRLA. EKG shows sinus tachycardia at 111. Vital signs otherwise stable. 1800: Patient is threatening to leave because he does not like his IV, states he wants to go home and states he is feeling fine and he does not need to be here and he does not want to go to [place] as Eliud from [facility] was trying to set up for the patient. The patient is alert and oriented. Eliud has spoken to the patient about leaving AMA and that if he gets caught he will get arrested for public intoxication. Patient understands this. Patient is stable and walks with a steady gait. Patient is signing out AMA. Nimo Disclaimer Nimo Disclaimer This electronic medical record was generated, in whole or in part, using a voice recognition dictation system. Departure Departure Impression: Primary Impression: ETOHism Disposition: 07 AGAINST MEDICAL ADVICE Condition: STABLE Referrals: NO PCP (PCP) Scripts No Active Prescriptions or Reported Meds ROGER MCNEAL GLAZE SUPERVISOR May 16, 2019 16:25
[2019-05-16 16:26] LABS: CALCIUM 9.1 mg/dL (8.5-10.1); CREATININE 0.7 mg/dL (0.7-1.3); GFR 125.5; POTASSIUM 3.5 mmol/L (3.5-5.1)
[2019-05-16 16:31] LABS: ALBUMIN 3.8 g/dL (3.4-5.0); TOTAL BILIRUBIN 0.1 mg/dL (0.2-1.0); TOTAL PROTEIN 7.7 g/dL (6.4-8.2)
[2019-05-16] MEDS ORDERED: IV NORMAL SALINE 1000ML BAG 1,000 ML IV ONE (16:45)
[2019-05-16] MEDS ORDERED: MULTIVIT INFUSN,ADULT 4,VIT K 10 ML, THIAMINE INJ 100 MG, FOLIC ACID INJ 1 MG in IV NOR... IV ONE (17:00)
[2019-05-16 17:27] LABS: PROTHROMBIN TIME PATIENT 11.3 SEC (11.7-14.0)
[2019-05-16 17:58] VITALS: BP 110/67
--- NOTE | 2019-05-17 11:22 | EKG ---
[facility] [address] [place] [id number] Test Date: 2019-05-16 Test Time: 16:14:05 Pat Name: LIN BEAL Department: Room: Gender: M Ad Writer: : [id number] Requested By: ROGER MCNEAL Order Number: [id number] Reading MD: Americo Thrasher MD Measurements Intervals [place] Rate: 110 P: 65 MD: 164 QRS: -28 QRSD: 94 T: 64 QT: 328 QTc: 449 Interpretive Statements SINUS TACHYCARDIA Electronically Signed On 05-26-2019 9:47:03 CDT by Americo Thrasher MD
== END 2019-05-16 18:41 | disposition left against medical advice (07) ==
LOC: ER 15:50
DX: F10.229 Alcohol dependence with intoxication, unspecified (principal); Y90.8 Blood alcohol level of 240 mg/100 ml or more; J44.9 Chronic obstructive pulmonary disease, unspecified; F17.210 Nicotine dependence, cigarettes, uncomplicated
CPT/HCPCS: 36415; 80053; 85025; 85610; 93005; 96365; 99285; G0480; J7030

== ENCOUNTER 2019-10-07 19:34 | Observation (INO) | payer SELFPAY ==
[~2019-10-07] VITALS: Ht 172.7 cm; Wt 72.0 kg
[2019-10-07] MEDS ORDERED: IV NORMAL SALINE 1000ML BAG 1,000 ML IV SCH (20:01)
[2019-10-07 20:08] LABS: BASO # 0.1 x10^3/uL (0.0-0.2); BASO % 1 % (0-3); EOS # 0.3 x10^3/uL (0.0-0.7); EOS % 2 % (0-3); HEMATOCRIT 41.2 % (39.0-53.0); HEMOGLOBIN 14.6 g/dL (13.0-17.5); LYMPH # 5.3 x10^3/uL (1.0-4.8); LYMPH % 40 % (24-48); MEAN CORPUSCULAR HEMOGLOBIN 35 pg (25-35); MEAN CORPUSCULAR HGB CONC 35 g/dL (31-37); MEAN CORPUSCULAR VOLUME 98 fL (79-100); MONO # 0.8 x10^3/uL (0.0-1.1); MONO % 6 % (0-9); NEUT # 6.8 x10^3/uL (1.8-7.7); NEUT % 51 % (31-73); PLATELET COUNT 268 x10^3/uL (140-400); RED CELL DISTRIBUTION WIDTH 13.6 % (11.5-14.5); WHITE BLOOD COUNT 13.3 x10^3/uL (4.0-11.0)
--- NOTE | 2019-10-07 20:08 | PHYS DOC ---
Past Medical History Past Medical History: Asthma, COPD, Other Additional Past Medical Histor: DENTAL CARIES Past Surgical History: No Surgical History Smoking Status: Current Every Day Smoker Alcohol Use: Heavy Drug Use: None, Other Adult General Chief Complaint Chief Complaint: ALCOHOL INTOXICATION HPI HPI 39-year-old male presents to emergency department via EMS with alcohol intoxication. Patient does have a gag reflex he wakes to painful stimuli however does not verbalize. He has clearly soiled himself. Unknown exactly patient took other medications or drugs his binge this afternoon. Past medical history includes hypertension as well as alcohol. Unknown further history will review her medical chart. Patient is non-participating in his history and physical this time. All other ROS negative unless documented in HPI Review of Systems Review of Systems See Above Current Medications Current Medications Current Medications Medications (Trade) Dose Ordered Sig/Mir Start Time Stop Time Status Last Admin Dose Admin Lorazepam (Ativan Inj) 2 mg 1X ONCE 10/07/19 20:25 10/07/19 20:44 DC 10/07/19 20:30 2 MG Multivitamins 10 ml/Thiamine HCl 100 mg/Folic Acid 1 mg/Sodium Chloride 1,011.2 ml @ 1,000 mls/ hr 1X ONCE 10/07/19 20:30 10/07/19 21:30 DC 10/07/19 20:30 1,000 MLS/HR Ondansetron HCl (Zofran) 4 mg 1X ONCE 10/07/19 21:00 10/07/19 21:19 DC Sodium Chloride 1,000 ml @ 1,000 mls/hr Q1H 10/07/19 20:01 10/07/19 21:00 DC 10/07/19 20:30 1,000 MLS/HR Ziprasidone (Geodon Im) 20 mg STK-MED ONCE 10/07/19 20:24 10/07/19 20:25 DC Allergies Allergies Allergies Coded Allergies Type Severity Reaction Last Updated Verified No Known Drug Allergies 03/10/19 No Physical Exam Physical Exam See Above Constitutional: Well developed, well nourished, intoxicated HENT: Normocephalic, atraumatic, bilateral external ears normal, oropharynx moist, no oral exudates, nose normal. [] Eyes: PERRLA, EOMI, conjunctiva normal, no discharge. [] Cardiovascular:Heart rate regular rhythm, no murmur [] Lungs & Thorax: Bilateral breath sounds clear to auscultation [] Abdomen: Bowel sounds normal, soft, no tenderness, no masses, no pulsatile masses. [] Skin: Warm, dry, no erythema, no rash. [] Extremities: No tenderness, no edema. [] Neurologic: patient responds to painful stimuli, + gag reflex on exam, he will awake however does not respond to questions Psychologic: Affect normal, judgement normal, mood normal. [] Current Patient Data Vital Signs Vital Signs Date Time Temp Pulse Resp B/P (MAP) Pulse Ox O2 Delivery O2 Flow Rate FiO2 10/07/19 19:45 97.7 106 16 131/87 (102) 94 Room Air 97.7 Lab Values Laboratory Tests Test 10/07/19 19:37 10/07/19 19:50 Glucose (Fingerstick) 102 mg/dL (70-99) H White Blood Count 13.3 x10^3/uL (4.0-11.0) H Red Blood Count 4.20 x10^6/uL (4.30-5.70) L Hemoglobin 14.6 g/dL (13.0-17.5) Hematocrit 41.2 % (39.0-53.0) Mean Corpuscular Volume 98 fL (79-100) Mean Corpuscular Hemoglobin 35 pg (25-35) Mean Corpuscular Hemoglobin Concent 35 g/dL (31-37) Red Cell Distribution Width 13.6 % (11.5-14.5) Platelet Count 268 x10^3/uL (140-400) Neutrophils (%) (Auto) 51 % (31-73) Lymphocytes (%) (Auto) 40 % (24-48) Monocytes (%) (Auto) 6 % (0-9) Eosinophils (%) (Auto) 2 % (0-3) Basophils (%) (Auto) 1 % (0-3) Neutrophils # (Auto) 6.8 x10^3/uL (1.8-7.7) Lymphocytes # (Auto) 5.3 x10^3/uL (1.0-4.8) H Monocytes # (Auto) 0.8 x10^3/uL (0.0-1.1) Eosinophils # (Auto) 0.3 x10^3/uL (0.0-0.7) Basophils # (Auto) 0.1 x10^3/uL (0.0-0.2) Sodium Level 143 mmol/L (136-145) Potassium Level 3.7 mmol/L (3.5-5.1) Chloride Level 103 mmol/L (98-107) Carbon Dioxide Level 26 mmol/L (21-32) Anion Gap 14 (6-14) Blood Urea Nitrogen 9 mg/dL (8-26) Creatinine 0.7 mg/dL (0.7-1.3) Estimated GFR (Cockcroft-Gault) 125.5 BUN/Creatinine Ratio 13 (6-20) Glucose Level 152 mg/dL (70-99) H Calcium Level 9.0 mg/dL (8.5-10.1) Magnesium Level 2.2 mg/dL (1.8-2.4) Total Bilirubin 0.4 mg/dL (0.2-1.0) Aspartate Amino Transferase (AST) 46 U/L (15-37) H Alanine Aminotransferase (ALT) 17 U/L (16-63) Alkaline Phosphatase 98 U/L (46-116) Total Protein 7.9 g/dL (6.4-8.2) Albumin 3.9 g/dL (3.4-5.0) Albumin/Globulin Ratio 1.0 (1.0-1.7) Acetaminophen Level < 2 mcg/ml (10-30) L Acetaminophen Last Dose Date Unk Acetaminophen Last Dose Time Unk Ethyl Alcohol Level 436 mg/dL (0-10) *H Laboratory Tests 10/07/19 19:50 Laboratory Tests 10/07/19 19:50 EKG EKG [] Radiology/Procedures Radiology/Procedures [] Course & Med Decision Making Course & Med Decision Making Pertinent Labs and Imaging studies reviewed. (See chart for details) []39-year-old male presents to emergency department via EMS with alcohol intoxication. Patient does have a gag reflex he wakes to painful stimuli however does not verbalize. He has clearly soiled himself. Unknown exactly patient took other medications or drugs his binge this afternoon. Past medical history includes hypertension as well as alcohol. Unknown further history will review her medical chart. Patient is non-participating in his history and physical this time. Patient was sent over for CT scan however became agitated and belligerent, 2 mg Ativan IV with patient subsiding. Security was called secondary to code rodríguez however with Ativan patient was able to be maintained on no restraints initiated Geodon 20 mg IM on standby for patient's agitation and belligerent activity. Dragon Disclaimer Dragon Disclaimer This electronic medical record was generated, in whole or in part, using a voice recognition dictation system. Departure Departure Impression: Primary Impression: Alcohol intoxication Additional Impression: Agitation Disposition: 09 ADMITTED INPATIENT Admitting Physician: [facility]S Condition: STABLE Referrals: NO PCP (PCP) Scripts No Active Prescriptions or Reported Meds Problem Qualifiers Primary Impression: Alcohol intoxication Complication of substance-induced condition: with unspecified complication Qualified Codes: F10.929 - Alcohol use, unspecified with intoxication, unspecified SINAN RÍOS MD Oct 07, 2019 20:08
[2019-10-07] MEDS ORDERED: ZIPRASIDONE IM 20 MG VIAL. IM ONE (20:24)
[2019-10-07] MEDS ORDERED: MULTIVIT INFUSN,ADULT 4,VIT K 10 ML, THIAMINE INJ 100 MG, FOLIC ACID INJ 1 MG in IV NOR... IV ONE (20:30)
[2019-10-07 20:39] LABS: ACETAMIN < 2 mcg/ml (10-30); ETHANOL 436 mg/dL (0-10)
[2019-10-07] MEDS ORDERED: ONDANSETRON PF 4 MG/2 ML VIAL. IVP ONE (21:00)
[2019-10-07] MEDS ORDERED: ONDANSETRON PF 4 MG/2 ML VIAL. ONE (21:11)
[2019-10-07] MEDS ORDERED: ONDANSETRON PF 4 MG/2 ML VIAL. IV PRN (22:00)
[2019-10-07] MEDS ORDERED: ACETAMINOPHEN 325 MG TABLET. PO PRN (22:00)
[2019-10-07 22:06] LABS: CREATININE 0.7 mg/dL (0.7-1.3); GFR 125.5; POTASSIUM 3.7 mmol/L (3.5-5.1)
[2019-10-07 22:12] LABS: ALBUMIN 3.9 g/dL (3.4-5.0); TOTAL BILIRUBIN 0.4 mg/dL (0.2-1.0); TOTAL PROTEIN 7.9 g/dL (6.4-8.2)
[2019-10-08 01:16] VITALS: BP 178/105
[2019-10-08 01:18] VITALS: BP 137/85
[2019-10-08 03:00] VITALS: BP 102/62
[2019-10-08 03:38] LABS: BILIRUBIN,URINE NEGATIVE (NEG); CLARITY,URINE CLEAR; COLOR,URINE YELLOW; NITRITE,URINE NEGATIVE (NEG); PROTEIN,URINE NEGATIVE (NEG-TRACE); UROBILINOGEN,URINE 0.2 mg/dL (0.2 mg/dL)
[2019-10-08 03:46] LABS: BACTERIA,URINE 0 /HPF (0-FEW); RBC,URINE 0 /HPF (0-2); SQUAMOUS EPITHELIAL CELL,UR FEW /LPF; WBC,URINE 0 /HPF (0-4)
[2019-10-08 03:54] LABS: BARBITURATES NEG (NEG); BENZODIAZEPINES NEG (NEG); CANNABINOIDS NEG (NEG); COCAINE NEG (NEG); METHADONE NEG (NEG); OPIATES NEG (NEG); PHENCYCLIDINE NEG (NEG)
[2019-10-08 03:58] LABS: AMPHETAMINE/METHAMPHETAMINE NEG (NEG)
--- NOTE | 2019-10-08 05:08 | EKG ---
[facility] [address] [place] [address] Test Date: 2019-10-07 Test Time: 22:49:54 Pat Name: LIN BEAL Department: Room: Gender: M Certified Nurses' Aide: : 1980 Requested By: SINAN RÍOS Order Number: [id number] Reading MD: Measurements Intervals [place] Rate: 105 P: -47 ME: 120 QRS: -31 QRSD: 88 T: 43 QT: 338 QTc: 451 Interpretive Statements SINUS TACHYCARDIA ABNORMAL LEFT AXIS DEVIATION R-S TRANSITION ZONE IN V LEADS DISPLACED TO THE LEFT LEFT ANTERIOR FASCICULAR BLOCK QRS(T) CONTOUR ABNORMALITY CONSIDER ANTEROSEPTAL MYOCARDIAL DAMAGE ABNORMAL ECG RI6.01 No previous ECG available for comparison
[2019-10-08 05:58] LABS: BASO # 0.1 x10^3/uL (0.0-0.2); BASO % 1 % (0-3); EOS # 0.4 x10^3/uL (0.0-0.7); EOS % 3 % (0-3); HEMATOCRIT 38.7 % (39.0-53.0); HEMOGLOBIN 13.3 g/dL (13.0-17.5); LYMPH # 2.8 x10^3/uL (1.0-4.8); LYMPH % 22 % (24-48); MEAN CORPUSCULAR HEMOGLOBIN 34 pg (25-35); MEAN CORPUSCULAR HGB CONC 34 g/dL (31-37); MEAN CORPUSCULAR VOLUME 98 fL (79-100); MONO # 0.8 x10^3/uL (0.0-1.1); MONO % 6 % (0-9); NEUT # 8.4 x10^3/uL (1.8-7.7); NEUT % 67 % (31-73); PLATELET COUNT 245 x10^3/uL (140-400); RED BLOOD COUNT 3.94 x10^6/uL (4.30-5.70); RED CELL DISTRIBUTION WIDTH 13.5 % (11.5-14.5); WHITE BLOOD COUNT 12.4 x10^3/uL (4.0-11.0)
[2019-10-08 06:28] LABS: ALBUMIN 3.3 g/dL (3.4-5.0); CALCIUM 8.3 mg/dL (8.5-10.1); CREATININE 0.6 mg/dL (0.7-1.3); TOTAL BILIRUBIN 0.4 mg/dL (0.2-1.0); TOTAL PROTEIN 6.6 g/dL (6.4-8.2)
--- NOTE | 2019-10-08 06:37 | NUR ---
Discharge Note: LIN BEAL Pt left AMA at 0637.Nursing Body Recall Instructor notified. Security notified and escorted patient to ED exit. IV line discontinued and all pt belongings with PT at time of discharged.
[2019-10-08] MEDS ORDERED: MULTIVIT INFUSN,ADULT 4,VIT K 10 ML, THIAMINE INJ 100 MG, FOLIC ACID INJ 1 MG in IV NOR... IV SCH (09:00)
== END 2019-10-08 06:37 | disposition left against medical advice (07) ==
LOC: ER 19:34 → 4 NORTH 21:55
PROVIDERS: ADMIT Internal Medicine; ATTEND Internal Medicine
DX: F10.129 Alcohol abuse with intoxication, unspecified (principal); R45.1 Restlessness and agitation; J45.909 Unspecified asthma, uncomplicated; J44.9 Chronic obstructive pulmonary disease, unspecified; F17.200 Nicotine dependence, unspecified, uncomplicated
CPT/HCPCS: 36415; 80053; 80307; 80329; 81001; 82962; 83735; 85025; 93005; 96365; 96375; 99284; G0378; G0480; J2060; J2405; J3411; J3490; J7030; G0379

== ENCOUNTER 2019-10-08 07:06 | Emergency (ER) | payer SELFPAY ==
[2019-10-08 03:00] VITALS: BP 102/62
== END 2019-10-08 07:40 | disposition left against medical advice (07) ==
LOC: ER 07:06
DX: F10.10 Alcohol abuse, uncomplicated (principal); Z53.21 Procedure and treatment not carried out due to patient leaving prior to being seen by health care provider

== ENCOUNTER 2019-10-11 13:53 | Emergency (ER) | payer SELFPAY ==
[~2019-10-11] VITALS: Ht 172.7 cm; Wt 100.0 kg
[2019-10-11] MEDS ORDERED: IV NORMAL SALINE 1000ML BAG 1,000 ML IV SCH (14:03)
[2019-10-11 14:34] LABS: BASO # 0.1 x10^3/uL (0.0-0.2); BASO % 1 % (0-3); EOS # 0.4 x10^3/uL (0.0-0.7); EOS % 4 % (0-3); HEMATOCRIT 43.9 % (39.0-53.0); LYMPH # 4.6 x10^3/uL (1.0-4.8); LYMPH % 43 % (24-48); MEAN CORPUSCULAR HEMOGLOBIN 36 pg (25-35); MEAN CORPUSCULAR HGB CONC 36 g/dL (31-37); MEAN CORPUSCULAR VOLUME 98 fL (79-100); MONO # 0.3 x10^3/uL (0.0-1.1); MONO % 3 % (0-9); NEUT # 5.2 x10^3/uL (1.8-7.7); NEUT % 49 % (31-73); PLATELET COUNT 269 x10^3/uL (140-400); RED CELL DISTRIBUTION WIDTH 14.2 % (11.5-14.5); WHITE BLOOD COUNT 10.6 x10^3/uL (4.0-11.0)
[2019-10-11 14:39] LABS: CALCIUM 8.6 mg/dL (8.5-10.1); CREATININE 0.8 mg/dL (0.7-1.3); GFR 107.6; POTASSIUM 3.3 mmol/L (3.5-5.1)
[2019-10-11 14:45] LABS: ALBUMIN 3.7 g/dL (3.4-5.0); DIRECT BILIRUBIN 0.1 mg/dL (0.0-0.2); MAGNESIUM 1.6 mg/dL (1.8-2.4); TOTAL BILIRUBIN 0.2 mg/dL (0.2-1.0); TOTAL PROTEIN 7.8 g/dL (6.4-8.2)
[2019-10-11 14:50] LABS: PROTHROMBIN TIME PATIENT 11.7 SEC (11.7-14.0); SALIC 6.7 mg/dL (2.8-20.0)
[2019-10-11 14:52] LABS: ACETAMIN < 2 mcg/ml (10-30)
[2019-10-11 14:54] LABS: ETHANOL 439 mg/dL (0-10)
[2019-10-11] MEDS ORDERED: MULTIVIT INFUSN,ADULT 4,VIT K 10 ML, THIAMINE INJ 100 MG, FOLIC ACID INJ 1 MG in IV NOR... IV ONE (15:00)
--- NOTE | 2019-10-11 15:33 | PHYS DOC ---
Past Medical History Past Medical History: Alcoholism, Asthma, COPD, Other Additional Past Medical Histor: DENTAL CARIES, ALCOHOL ABUSE Past Surgical History: No Surgical History Smoking Status: Current Every Day Smoker Alcohol Use: Heavy Drug Use: None, Other Adult General Chief Complaint Chief Complaint: ALCOHOL INTOXICATION [facility] HPI Patient is a 39 year old homeless male with history of alcoholism, asthma, COPD who presents via EMS complaining of alcohol intoxication. Patient was found intoxicated in behind of dust gestation and bystander called 911. Patient states he had 2 pints of vodka today and denies suicidal and homicidal ideation. Patient had frequent emergency room visits with diagnosis of alcohol intoxication. Patient states he is hearing the voice of his mother. Review of Systems Review of Systems Constitutional: Denies fever or chills [] Eyes: Denies change in visual acuity, redness, or eye pain [] HENT: Denies nasal congestion or sore throat [] Respiratory: Denies cough or shortness of breath [] Cardiovascular: No additional information not addressed in HPI [] GI: Denies abdominal pain, nausea, vomiting, bloody stools or diarrhea [] : Denies dysuria or hematuria [] Musculoskeletal: Denies back pain or joint pain [] Integument: Denies rash or skin lesions [] Neurologic: Denies headache, focal weakness or sensory changes [] Endocrine: Denies polyuria or polydipsia [] All other systems were reviewed and found to be within normal limits, except as documented in this note. Current Medications Current Medications Current Medications Medications (Trade) Dose Ordered Sig/Mir Start Time Stop Time Status Last Admin Dose Admin Magnesium Sulfate 50 ml @ 25 mls/hr 1X ONCE 10/11/19 15:45 10/11/19 17:44 DC 10/11/19 15:49 25 MLS/HR Multivitamins 10 ml/Thiamine HCl 100 mg/Folic Acid 1 mg/Sodium Chloride 1,011.2 ml @ 1,000 mls/ hr 1X ONCE 10/11/19 15:00 10/11/19 16:00 DC 10/11/19 14:26 1,000 MLS/HR Sodium Chloride 1,000 ml @ 1,000 mls/hr 1X ONCE 10/11/19 15:45 10/11/19 16:44 DC 10/11/19 16:12 1,000 MLS/HR Allergies Allergies Allergies Coded Allergies Type Severity Reaction Last Updated Verified No Known Drug Allergies 03/10/19 No Physical Exam Physical Exam Constitutional: Well nourished, mild distress, non-toxic appearance, smell of alcohol on breath. [] HENT: Normocephalic, atraumatic, bilateral external ears normal, oropharynx moist, no oral exudates, nose normal. [] Eyes: PERRLA, EOMI, conjunctiva normal, no discharge. [] Neck: Normal range of motion, no tenderness, supple, no stridor. [] Cardiovascular:Heart rate regular rhythm, no murmur [] Lungs & Thorax: Bilateral breath sounds clear to auscultation [] Abdomen: Bowel sounds normal, soft, no tenderness, no masses, no pulsatile masses. [] Skin: Warm, dry, no erythema, no rash. [] Back: No tenderness, no CVA tenderness. [] Extremities: No tenderness, no cyanosis, no clubbing, ROM intact, no edema. [] Neurologic: Alert and oriented X 3, normal motor function, normal sensory func tion, no focal deficits noted. [] Psychologic: Affect anxious, intoxicated, mood normal. [] Current Patient Data Vital Signs Vital Signs Date Time Temp Pulse Resp B/P (MAP) Pulse Ox O2 Delivery O2 Flow Rate FiO2 10/11/19 13:53 98.5 133 18 150/103 (119) 97 Room Air 98.5 Lab Values Laboratory Tests Test 10/11/19 13:58 10/11/19 14:20 10/11/19 17:10 10/11/19 17:19 Glucose (Fingerstick) 127 mg/dL (70-99) H White Blood Count 10.6 x10^3/uL (4.0-11.0) Red Blood Count 4.50 x10^6/uL (4.30-5.70) Hemoglobin 16.0 g/dL (13.0-17.5) Hematocrit 43.9 % (39.0-53.0) Mean Corpuscular Volume 98 fL (79-100) Mean Corpuscular Hemoglobin 36 pg (25-35) H Mean Corpuscular Hemoglobin Concent 36 g/dL (31-37) Red Cell Distribution Width 14.2 % (11.5-14.5) Platelet Count 269 x10^3/uL (140-400) Neutrophils (%) (Auto) 49 % (31-73) Lymphocytes (%) (Auto) 43 % (24-48) Monocytes (%) (Auto) 3 % (0-9) Eosinophils (%) (Auto) 4 % (0-3) H Basophils (%) (Auto) 1 % (0-3) Neutrophils # (Auto) 5.2 x10^3/uL (1.8-7.7) Lymphocytes # (Auto) 4.6 x10^3/uL (1.0-4.8) Monocytes # (Auto) 0.3 x10^3/uL (0.0-1.1) Eosinophils # (Auto) 0.4 x10^3/uL (0.0-0.7) Basophils # (Auto) 0.1 x10^3/uL (0.0-0.2) Prothrombin Time 11.7 SEC (11.7-14.0) Prothrombin Time INR 0.9 (0.8-1.1) Sodium Level 148 mmol/L (136-145) H Potassium Level 3.3 mmol/L (3.5-5.1) L Chloride Level 105 mmol/L (98-107) Carbon Dioxide Level 34 mmol/L (21-32) H Anion Gap 9 (6-14) Blood Urea Nitrogen 5 mg/dL (8-26) L Creatinine 0.8 mg/dL (0.7-1.3) Estimated GFR (Cockcroft-Gault) 107.6 Glucose Level 144 mg/dL (70-99) H Calcium Level 8.6 mg/dL (8.5-10.1) Magnesium Level 1.6 mg/dL (1.8-2.4) L Total Bilirubin 0.2 mg/dL (0.2-1.0) Direct Bilirubin 0.1 mg/dL (0.0-0.2) Aspartate Amino Transferase (AST) 35 U/L (15-37) Alanine Aminotransferase (ALT) 18 U/L (16-63) Alkaline Phosphatase 119 U/L (46-116) H Total Protein 7.8 g/dL (6.4-8.2) Albumin 3.7 g/dL (3.4-5.0) Salicylates Level 6.7 mg/dL (2.8-20.0) Salicylate Last Dose Date Unknown Salicylate Last Dose Time Unknown Acetaminophen Level < 2 mcg/ml (10-30) L Acetaminophen Last Dose Date Unknown Acetaminophen Last Dose Time Unknown Ethyl Alcohol Level 439 mg/dL (0-10) *H 342 mg/dL (0-10) H Urine Collection Type Unknown Urine Color Yellow Urine Clarity Clear Urine pH 5.5 Urine Specific [place] 1.015 Urine Protein Negative mg/dL (NEG-TRACE) Urine Glucose (UA) Negative mg/dL (NEG) Urine Ketones (Stick) Negative mg/dL (NEG) Urine Blood Negative (NEG) Urine Nitrite Negative (NEG) Urine Bilirubin Negative (NEG) Urine Urobilinogen Dipstick 0.2 mg/dL (0.2 mg/dL) Urine Leukocyte Esterase Negative (NEG) Urine RBC 0 /HPF (0-2) Urine WBC Occ /HPF (0-4) Urine Squamous Epithelial Cells Occ /LPF Urine Bacteria 0 /HPF (0-FEW) Urine Hyaline Casts Few /HPF Urine Mucus Mod /LPF Urine Opiates Screen Neg (NEG) Urine Methadone Screen Neg (NEG) Urine Barbiturates Neg (NEG) Urine Phencyclidine Screen Neg (NEG) Urine Amphetamine/Methamphetamine Neg (NEG) Urine Benzodiazepines Screen Neg (NEG) Urine Cocaine Screen Neg (NEG) Urine Cannabinoids Screen Neg (NEG) Urine Ethyl Alcohol Pos (NEG) Laboratory Tests 10/11/19 14:20 Laboratory Tests 10/11/19 14:20 EKG EKG [] Radiology/Procedures Radiology/Procedures [] Course & Med Decision Making Course & Med Decision Making Pertinent Labs reviewed. (See chart for details) Evaluation of patient in ER showed 39-year-old homeless female patient with history of alcoholism brought in by ambulance because of alcohol intoxication. Patient had blood alcohol of more than 400 and treated with IV fluid and fluent applied with improvement of his condition and was able to ambulate with blood alcohol of 342. Patient was evaluated by PAT team and did not have criteria for inpatient treatment and plan to send him to [facility]. Nimo Disclaimer [place] Disclaimer This electronic medical record was generated, in whole or in part, using a voice recognition dictation system. Departure Departure Impression: Primary Impression: Alcohol intoxication Additional Impressions: Homelessness Hypomagnesemia Hypokalemia Disposition: HOME, SELF-CARE (To [facility] ) Condition: IMPROVED Referrals: NO PCP (PCP) Patient Instructions: Alcohol Intoxication, Hypokalemia, Hypomagnesemia Additional Instructions: Drink plenty of liquids Follow-up with your primary care physician in 3-5 days Return to ER if not getting better Scripts No Active Prescriptions or Reported Meds Problem Qualifiers Primary Impression: Alcohol intoxication Complication of substance-induced condition: uncomplicated Qualified Codes: F10.920 - Alcohol use, unspecified with intoxication, uncomplicated GODFREY ALANIZ MD Oct 11, 2019 15:33
[2019-10-11] MEDS ORDERED: MAGNESIUM SULFATE 2GM 50 ML IV ONE (15:45)
[2019-10-11] MEDS ORDERED: IV NORMAL SALINE 1000ML BAG 1,000 ML IV ONE (15:45)
[2019-10-11 16:28] VITALS: BP 115/65
[2019-10-11 17:21] LABS: BILIRUBIN,URINE NEGATIVE (NEG); CLARITY,URINE CLEAR; COLOR,URINE YELLOW; NITRITE,URINE NEGATIVE (NEG); PH,URINE 5.5; PROTEIN,URINE NEGATIVE (NEG-TRACE); UROBILINOGEN,URINE 0.2 mg/dL (0.2 mg/dL)
[2019-10-11 17:28] LABS: BARBITURATES NEG (NEG); BENZODIAZEPINES NEG (NEG); CANNABINOIDS NEG (NEG); COCAINE NEG (NEG); METHADONE NEG (NEG); OPIATES NEG (NEG); PHENCYCLIDINE NEG (NEG)
[2019-10-11 17:34] LABS: AMPHETAMINE/METHAMPHETAMINE NEG (NEG)
[2019-10-11 17:38] LABS: BACTERIA,URINE 0 /HPF (0-FEW); HYALINE CASTS, URINE FEW /HPF; RBC,URINE 0 /HPF (0-2); SQUAMOUS EPITHELIAL CELL,UR OCC /LPF; WBC,URINE OCC /HPF (0-4)
== END 2019-10-11 18:06 | disposition home or self-care (01) ==
LOC: ER 13:53
DX: F10.229 Alcohol dependence with intoxication, unspecified (principal); E83.42 Hypomagnesemia; E87.6 Hypokalemia; Z59.0 Homelessness; J44.9 Chronic obstructive pulmonary disease, unspecified; Z87.891 Personal history of nicotine dependence
CPT/HCPCS: 36415; 80048; 80076; 80307; 80329; 81001; 82962; 83735; 85025; 85610; 96365; 96366; 96368; 99285; G0480; J3411; J3475; J3490; J7030

== ENCOUNTER 2019-10-11 21:00 | Emergency (ER) | payer SELFPAY ==
[~2019-10-11] VITALS: Ht 175.3 cm; Wt 100.0 kg
[2019-10-11] MEDS ORDERED: IV NORMAL SALINE 1000ML BAG 1,000 ML IV ONE (22:00)
[2019-10-11 22:16] LABS: BASO # 0.1 x10^3/uL (0.0-0.2); BASO % 1 % (0-3); EOS # 0.4 x10^3/uL (0.0-0.7); EOS % 3 % (0-3); HEMATOCRIT 41.6 % (39.0-53.0); HEMOGLOBIN 14.7 g/dL (13.0-17.5); LYMPH # 3.9 x10^3/uL (1.0-4.8); LYMPH % 29 % (24-48); MEAN CORPUSCULAR HEMOGLOBIN 35 pg (25-35); MEAN CORPUSCULAR HGB CONC 35 g/dL (31-37); MEAN CORPUSCULAR VOLUME 98 fL (79-100); MONO # 0.8 x10^3/uL (0.0-1.1); MONO % 6 % (0-9); NEUT # 8.4 x10^3/uL (1.8-7.7); NEUT % 62 % (31-73); PLATELET COUNT 248 x10^3/uL (140-400); RED BLOOD COUNT 4.23 x10^6/uL (4.30-5.70); RED CELL DISTRIBUTION WIDTH 13.9 % (11.5-14.5); WHITE BLOOD COUNT 13.5 x10^3/uL (4.0-11.0)
--- NOTE | 2019-10-11 22:22 | PHYS DOC ---
Past Medical History Past Medical History: Alcoholism, Asthma, COPD, Other Additional Past Medical Histor: DENTAL CARIES, ALCOHOL ABUSE Past Surgical History: No Surgical History Smoking Status: Current Every Day Smoker Alcohol Use: Heavy Drug Use: None, Other Adult General Chief Complaint Chief Complaint: ALCOHOL INTOXICATION HPI HPI Patient is a 39 year old male who presents with weakness seen this morning when he was intoxicated and found again [place] [employer]. Patient was seen by Sahnthi fritz Pat team and he was discharged to our [facility]. Patient went by cab. Patient tonight was brought in by EMS again as he was found in [facility] by police intoxicated and passed out. Patient never made it to [facility] and instead went and drink. Patient is sleeping but is easily arousable but very intoxicated. Patient is very intoxicated and altered and is not answering questions appropriately and following commands poorly. Patient is moving around in the bed without complication. Review of Systems Review of Systems Neurologic: Denies headache, focal weakness or sensory changes. Alcohol intoxication [] All other systems were reviewed and found to be within normal limits, except as documented in this note. Current Medications Current Medications Current Medications Medications (Trade) Dose Ordered Sig/Mir Start Time Stop Time Status Last Admin Dose Admin Sodium Chloride 1,000 ml @ 1,000 mls/hr 1X ONCE 10/11/19 22:00 10/11/19 22:59 DC 10/11/19 22:00 1,000 MLS/HR Allergies Allergies Allergies Coded Allergies Type Severity Reaction Last Updated Verified No Known Drug Allergies 03/10/19 No Physical Exam Physical Exam Constitutional: Alcohol intoxication. Well developed, well nourished, no acute distress, non-toxic appearance. [] HENT: Normocephalic, atraumatic, bilateral external ears normal, oropharynx moist, no oral exudates, nose normal. [] Eyes: PERRLA, EOMI, conjunctiva normal, no discharge. [] Neck: Normal range of motion, no tenderness, supple, no stridor. [] Cardiovascular:Heart rate regular rhythm, no murmur [] Lungs & Thorax: Bilateral breath sounds clear to auscultation [] Abdomen: Bowel sounds normal, soft, no tenderness, no masses, no pulsatile masses. [] Skin: Warm, dry, no erythema, no rash. [] Back: No tenderness, no CVA tenderness. [] Extremities: No tenderness, no cyanosis, no clubbing, ROM intact, no edema. [] Neurologic: Alert and oriented X 2, normal motor function, normal sensory function, no focal deficits noted. [] Psychologic: Affect normal, judgement normal, mood normal. [] Current Patient Data Vital Signs Vital Signs Date Time Temp Pulse Resp B/P (MAP) Pulse Ox O2 Delivery O2 Flow Rate FiO2 10/12/19 00:40 107 159/97 (117) 96 Room Air Lab Values Laboratory Tests Test 10/11/19 22:05 White Blood Count 13.5 x10^3/uL (4.0-11.0) H Red Blood Count 4.23 x10^6/uL (4.30-5.70) L Hemoglobin 14.7 g/dL (13.0-17.5) Hematocrit 41.6 % (39.0-53.0) Mean Corpuscular Volume 98 fL (79-100) Mean Corpuscular Hemoglobin 35 pg (25-35) Mean Corpuscular Hemoglobin Concent 35 g/dL (31-37) Red Cell Distribution Width 13.9 % (11.5-14.5) Platelet Count 248 x10^3/uL (140-400) Neutrophils (%) (Auto) 62 % (31-73) Lymphocytes (%) (Auto) 29 % (24-48) Monocytes (%) (Auto) 6 % (0-9) Eosinophils (%) (Auto) 3 % (0-3) Basophils (%) (Auto) 1 % (0-3) Neutrophils # (Auto) 8.4 x10^3/uL (1.8-7.7) H Lymphocytes # (Auto) 3.9 x10^3/uL (1.0-4.8) Monocytes # (Auto) 0.8 x10^3/uL (0.0-1.1) Eosinophils # (Auto) 0.4 x10^3/uL (0.0-0.7) Basophils # (Auto) 0.1 x10^3/uL (0.0-0.2) Urine Collection Type Unknown Urine Color Yellow Urine Clarity Clear Urine pH 7.0 Urine Specific [place] <=1.005 Urine Protein Negative mg/dL (NEG-TRACE) Urine Glucose (UA) Negative mg/dL (NEG) Urine Ketones (Stick) Negative mg/dL (NEG) Urine Blood Negative (NEG) Urine Nitrite Negative (NEG) Urine Bilirubin Negative (NEG) Urine Urobilinogen Dipstick 0.2 mg/dL (0.2 mg/dL) Urine Leukocyte Esterase Negative (NEG) Urine RBC 0 /HPF (0-2) Urine WBC 0 /HPF (0-4) Urine Squamous Epithelial Cells Occ /LPF Urine Bacteria 0 /HPF (0-FEW) Sodium Level 146 mmol/L (136-145) H Potassium Level 3.7 mmol/L (3.5-5.1) Chloride Level 106 mmol/L (98-107) Carbon Dioxide Level 31 mmol/L (21-32) Anion Gap 9 (6-14) Blood Urea Nitrogen 7 mg/dL (8-26) L Creatinine 0.7 mg/dL (0.7-1.3) Estimated GFR (Cockcroft-Gault) 125.5 BUN/Creatinine Ratio 10 (6-20) Glucose Level 101 mg/dL (70-99) H Calcium Level 8.3 mg/dL (8.5-10.1) L Total Bilirubin 0.3 mg/dL (0.2-1.0) Aspartate Amino Transferase (AST) 41 U/L (15-37) H Alanine Aminotransferase (ALT) 16 U/L (16-63) Alkaline Phosphatase 116 U/L (46-116) Total Protein 7.6 g/dL (6.4-8.2) Albumin 3.6 g/dL (3.4-5.0) Albumin/Globulin Ratio 0.9 (1.0-1.7) L Urine Opiates Screen Neg (NEG) Urine Methadone Screen Neg (NEG) Urine Barbiturates Neg (NEG) Urine Phencyclidine Screen Neg (NEG) Urine Amphetamine/Methamphetamine Neg (NEG) Urine Benzodiazepines Screen Neg (NEG) Urine Cocaine Screen Neg (NEG) Urine Cannabinoids Screen Neg (NEG) Ethyl Alcohol Level 447 mg/dL (0-10) *H Urine Ethyl Alcohol Pos (NEG) Laboratory Tests 10/11/19 22:05 Laboratory Tests 10/11/19 22:05 EKG EKG [] Radiology/Procedures Radiology/Procedures [] Course & Med Decision Making Course & Med Decision Making Pertinent Labs and Imaging studies reviewed. (See chart for details) Alert and oriented x2. Lungs are clear to auscultation all lobes. No trauma seen to the patient's body no deformities. PERRLA. 0030: Patient is alert and oriented x3. He states that we can send him to [facility] but he wont go to [facility]. Patient states he will go back home which is to the [place] at "[facility]". He states that is where he lives. He is ambulatory and steady. He is making jokes with staff. Vital signs wnl. Patient has had a liter of NS. He has a etoh level of 447. Per Dr Fierro patient can leave as he is fully functioning. [] Dragon Disclaimer Dragon Disclaimer This electronic medical record was generated, in whole or in part, using a voice recognition dictation system. Departure Departure Impression: Primary Impression: Alcohol intoxication Disposition: 01 HOME, SELF-CARE Condition: STABLE Referrals: NO PCP (PCP) Patient Instructions: Alcohol Intoxication, [id number] Additional Instructions: Follow up with [facility]. Drink plenty of fluids. Scripts No Active Prescriptions or Reported Meds Problem Qualifiers Primary Impression: Alcohol intoxication Complication of substance-induced condition: uncomplicated Qualified Codes: F10.920 - Alcohol use, unspecified with intoxication, uncomplicated ROGER MCNEAL PERSONAL CONSULTANT Oct 11, 2019 22:22
[2019-10-11 22:23] LABS: BARBITURATES NEG (NEG); BENZODIAZEPINES NEG (NEG); CANNABINOIDS NEG (NEG); COCAINE NEG (NEG); METHADONE NEG (NEG); OPIATES NEG (NEG); PHENCYCLIDINE NEG (NEG)
[2019-10-11 22:24] LABS: AMPHETAMINE/METHAMPHETAMINE NEG (NEG); CALCIUM 8.3 mg/dL (8.5-10.1); CREATININE 0.7 mg/dL (0.7-1.3); GFR 125.5; POTASSIUM 3.7 mmol/L (3.5-5.1)
[2019-10-11 22:30] LABS: ALBUMIN 3.6 g/dL (3.4-5.0); ALBUMIN/GLOBULIN RATIO 0.9 (1.0-1.7); TOTAL BILIRUBIN 0.3 mg/dL (0.2-1.0); TOTAL PROTEIN 7.6 g/dL (6.4-8.2)
[2019-10-11 22:50] LABS: BILIRUBIN,URINE NEGATIVE (NEG); CLARITY,URINE CLEAR; COLOR,URINE YELLOW; NITRITE,URINE NEGATIVE (NEG); PROTEIN,URINE NEGATIVE (NEG-TRACE); UROBILINOGEN,URINE 0.2 mg/dL (0.2 mg/dL)
[2019-10-11 22:55] LABS: BACTERIA,URINE 0 /HPF (0-FEW); RBC,URINE 0 /HPF (0-2); SQUAMOUS EPITHELIAL CELL,UR OCC /LPF; WBC,URINE 0 /HPF (0-4)
[2019-10-12 00:40] VITALS: BP 159/97
[2019-10-12] MEDS ORDERED: IV NORMAL SALINE 1000ML BAG 1,000 ML IV ONE (01:00)
== END 2019-10-12 01:37 | disposition home or self-care (01) ==
LOC: ER 21:00
DX: F10.229 Alcohol dependence with intoxication, unspecified (principal); R55 Syncope and collapse; J44.9 Chronic obstructive pulmonary disease, unspecified; J45.909 Unspecified asthma, uncomplicated; F17.200 Nicotine dependence, unspecified, uncomplicated; F10.20 Alcohol dependence, uncomplicated; Y90.8 Blood alcohol level of 240 mg/100 ml or more
CPT/HCPCS: 36415; 80053; 80307; 81001; 85025; 96360; 99284; G0480; J7030